=== PATIENT | male | born 1960 | race Caucasian/White ===

== ENCOUNTER 2024-03-10 15:48 | Inpatient (IN) | payer OTHER, SELFPAY ==
[2024-03-10] VITALS (25 sets, daily range): BP systolic 52–117; BP diastolic 38–100; PULSE 94–141; RESP 16–33; TEMP 36.7; O2SAT 88–96; BMI 30.9
--- NOTE | ~2024-03-10 | CT_ITS ---
History: Altered mental status and respiratory distress PROCEDURE: CT head without contrast. COMPARISON: None TECHNIQUE: Axial imaging of the head performed from the skull base to the vertex without IV contrast. Sagittal a nd coronal reformations obtained. DLP: 757 mGy-cm FINDINGS: Asymmetry of the posterior cranial fossa, possibly related to patient positioning within the gantry. The lateral ventricles are unremarkable, as is the quadrigeminal cistern and the fourth ventricle. As ymmetry within the cisterna magna is present with asymmetric visualization to the right of midline. There is no mass, mass effect or discrete midline shift. There is no abnormal extra-axial fluid collection or intracranial hemorrhage. Visualized paranasal sinuses are clear. The mastoid air cells are well aerated. No acute displaced fractures within the overlying cranium. Impression: No acute intracranial hemorrhage. Asymmetry of the posterior cranial fossa, possibly related to patient positioning within the gantry w ith asymmetric visualization of the cisterna magna to the right of midline. Short-term follow-up is r ecommended, if the patient is clinically able Reviewed, dictated and finalized at location A. OL LUNCH MANAGER Impression: No acute intracranial hemorrhage. Asymmetry of the posterior cranial fossa, possibly related to patient positioni ng within the gantry with asymmetric visualization of the cisterna magna to the right of midline. Short-term follow-up is recommended, if the patient is clini anaya able
--- NOTE | ~2024-03-10 | CT_ITS ---
EXAMINATION: CT brain wo con DATE: 03/11/2024 11:44 INDICATION: Posterior cranial fossa asymmetry. TECHNIQUE: Computed tomography (CT) of the head was performed without intravenous contrast. The mA wa s adjusted according to patient size. Iterative reconstruction technique was employed. The dose-lengt h product was 681.00 mGy-cm. COMPARISON: Head CT 03/10/2024 FINDINGS: There is an infarct in the left occipital lobe. There are old infarcts in the left parietal and occipital lobes. There is no intracranial hemorrhage or abnormal mass lesion. There is an old la cunar infarct in left thalamus. There is a small infarct in the right parietal lobe. The ventricles a re normal in size. There is mild mucosal thickening in the paranasal sinuses. There is a small left m astoid effusion. The orbits are normal. IMPRESSION: 1. Infarcts in the left occipital lobe and right parietal lobe not visible on 03/10/2024, likely acut e. 2. 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 Reviewed, dictated and finalized at location A. OR USER EXPERIENCE ARCHITECT IMPRESSION: 1. Infarcts in the left occipital lobe and right parietal lobe not visible on 1 05/11/2023, likely acute. 2. 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
--- NOTE | ~2024-03-10 | XR_ITS ---
CHEST RADIOGRAPH CLINICAL HISTORY: ett tube placement . COMPARISON: None available TECHNIQUE: Single portable view of the chest. FINDINGS Endotracheal tube identified with its tip projecting approximately 7.7 cm above the base of the gabbie a. Orogastric tube extends below the left hemidiaphragm, presumably within the stomach. Cardiomediastinal silhouette is otherwise unremarkable. Left-sided pleural effusion. The right lung is poorly visualized. IMPRESSION: Adequate radiographic placement of both the endotracheal tube and orogastric tubes, as detailed above . Reviewed, dictated and finalized at location A. MECHANIC IMPRESSION: Adequate radiographic placement of both the endotracheal tube and orogastric tu bes, as detailed above.
--- NOTE | ~2024-03-10 | CT_ITS ---
EXAMINATION: CTA chest PE protocol DATE: 03/10/2024 18:30 BONE CHAR KILN TENDER INDICATION: Altered mental status and respiratory distress TECHNIQUE: Computed tomographic angiography (CTA) of the chest was performed with 100 mL Omnipaque-35 0 intravenous contrast. The dose-length product was 853.76 mGy-cm. Maximum intensity projection 3D-re constructions of the aorta and other arteries were constructed by the technologist on a separate work station. COMPARISON: None. FINDINGS: No filling defect is identified within the main or proximal pulmonary arteries. The thoracic aorta is without dissection or aneurysmal dilatation. Panlobular emphysematous disease is present with biapical bulla and scarring. Patchy groundglass opacification and interstitial thickening is present suggesting vascular congestio n. Bilateral lower lobe consolidation for which aspiration is suspected. Retained gastric contents within the stomach of mixed attenuation. Right kidney is unremarkable. The left kidney is not visualized. The heart is of normal size, without pericardial effusion. No acute fractures are appreciated. No lytic or blastic lesions are noted. The right adrenal gland is unremarkable. The left adrenal gland is enlarged measuring 26 x 21 mm and demonstrating soft tissue attenuation. IMPRESSION: No pulmonary embolus. No aortic dissection. Likely bilateral aspiration pneumonia, as detailed above. Severe panlobular emphysematous disease. Left adrenal enlargement for which follow-up examination may be performed when the patient is clinica lly able. Reviewed, dictated and finalized at location A. CHAR KILN TENDER IMPRESSION: No pulmonary embolus. No aortic dissection. Likely bilateral aspiration pneumonia, as detailed above. Severe panlobular emphysematous disease. Left adrenal enlargement for which follow-up examination may be performed when the patient is clinically able.
--- NOTE | ~2024-03-10 | XR_ITS ---
EXAMINATION: XR chest 1V portable DATE: 03/11/2024 05:10 INDICATION: Intubated. TECHNIQUE: A single frontal view of the chest was obtained on 2 radiographs. COMPARISON: Chest single view 03/10/2024, chest CT 03/10/2024 FINDINGS: There are lucencies and architectural distortion in the lungs, consistent with emphysema. T here are airspace opacities in the mid and lower lung zones. No pleural effusion or pneumothorax. The heart size is normal. The endotracheal tube tip is 8.2 cm above the berto. The nasogastric tube tip is beyond the inferior margin of the radiograph, but at least to the stomach. IMPRESSION: 1. Stable airspace opacities in the mid and lower lung zones, consistent with pneumonia. 2. Emphysema. Reviewed, dictated and finalized at location A. COATER IMPRESSION: 1. Stable airspace opacities in the mid and lower lung zones, consistent with p neumonia. 2. Emphysema.
--- NOTE | ~2024-03-10 | CT_ITS ---
EXAMINATION: CTA neck DATE: 03/11/2024 17:44 INDICATION: Acute infarcts in the left occipital lobe and right parietal lobe. TECHNIQUE: CTA of the neck was performed with 200 mL Omnipaque 350 intravenous contrast. Automated ex posure control and iterative reconstruction technique were employed. The dose-length product was 1510 .80 mGy-cm. Maximum intensity projection and volume rendered 3D-reconstructions were created by the t echnologist on a separate workstation. COMPARISON: Chest CT 03/10/2024 FINDINGS: There is moderate emphysema. There is mild scarring at the lung apices. There are airspace opacities in the lower lobes. The endotracheal tube tip is in the trachea. Partially visualized is a nasogastri c tube. There is severe stenosis of the proximal left subclavian artery. There is moderate stenosis o f proximal left common carotid artery. There is severe stenosis of brachiocephalic trunk. The vertebr al arteries are codominant. There is plaque in the proximal internal carotid arteries. There is 31% s tenosis of the proximal right internal carotid artery relative to normal distal artery lumen diameter (NASCET criteria). There is 6% stenosis of the proximal left internal carotid artery relative to nor mal distal artery lumen diameter. There is moderate stenosis of distal left internal carotid artery. IMPRESSION: 1. Severe stenosis of proximal left subclavian artery, which likely causes subclavian steal. 2. Moderate stenosis of proximal left common carotid artery. 3. Severe stenosis of brachiocephalic trunk. 4. 31% stenosis of the proximal right internal carotid artery relative to normal distal artery lumen diameter (NASCET criteria). 5. 6% stenosis of the proximal left internal carotid artery relative to normal distal artery lumen di ameter. 6. Moderate stenosis of distal left cervical internal carotid artery. The morphology of the stenosis is suspicious for dissection with thrombosis of the false lumen. 7. Airspace opacities in the lower lobes, consistent with pneumonia. Reviewed, dictated and finalized at location A. MECHANIC IMPRESSION: 1. Severe stenosis of proximal left subclavian artery, which likely causes subc lavian steal. 2. Moderate stenosis of proximal left common carotid artery. 3. Severe stenosis of brachiocephalic trunk. 4. 31% stenosis of the proximal right internal carotid artery relative to ashlie l distal artery lumen diameter (NASCET criteria). 5. 6% stenosis of the proximal left internal carotid artery relative to normal distal artery lumen diameter. 6. Moderate stenosis of distal left cervical internal carotid artery. The morph ology of the stenosis is suspicious for dissection with thrombosis of the false lumen. 7. Airspace opacities in the lower lobes, consistent with pneumonia.
--- NOTE | 2024-03-10 16:02 | ECG_ITS ---
Test Date: 2024-03-10 16:11:12 Measurements Intervals [place] Rate: 143 P: 0 ID: 0 QRS: 79 QRSD: 114 T: 63 QT: 350 QTc: 542 Interpretive Statements SUPRAVENTRICULAR TACHYCARDIA MODERATE INTRAVENTRICULAR CONDUCTION DELAY [110+ ms QRS DURATION] ABNORMAL RHYTHM ECG No previous ECG available for comparison Electronically Signed On 03-11-2024 13:49:43 [employer]PATCH CLERK by aRymond Corey M.D.
[2024-03-10] MEDS: SODIUM CHLORIDE 0.9% IV 1,000 ML 999 ML IV CONT ×3 (16:10→20:00)
[2024-03-10] MEDS: FENTANYL 2,500MCG/NS250ML(*CRX 2,500 MCG/250 ML BAG IV CONT (16:20)
[2024-03-10 16:21] LABS: Alveolar/Arterial O2 Gradient 549.4 mmHg; Carboxyhemoglobin 3.4 % THb (0-2.0); Fractional Inspired Oxygen 100 %; HCO3 ABG 25.2 mEq/l (22.0-26.0); Methemoglobin ABG 0.4 %THb (0-1.5); Oxygen Content ABG 19.5 %vol (16.0-22.0); PO2 ABG 70.9 mmHg (80.0-100.0); PO2 FiO2 Ratio Arterial Blood 0.71 %; Reduced Hemoglobin 11.8 %THb (0-5.0); Total Hemoglobin 16.4 g/dL (12.0-18.0)
[2024-03-10 16:23] LABS: pH ABG 7.053 (7.350-7.450)
[2024-03-10 16:24] LABS: Device VENTILATOR; Oxygen Saturation ABG 85.1 % (95.0-100.0); Oxyhemoglobin 84.4 % THb (90.0-100.0); PCO2 ABG 92.7 mmHg (35.0-45.0); Site Drawn RIGHT RADIAL
[2024-03-10 16:25] LABS: Arterial Blood Gas PEEP 5 cmH2O; Arterial Blood Gas Tidal Volume 400 ml; Arterial Blood Gas Vent Mode CMV; Arterial Blood Gas Ventilator rate 16 /MIN
[2024-03-10 16:29] LABS: Basophils Absolute Auto 0.2 K/mm3 (0.0-0.1); Basophils Percent Auto 0.8 % (0.2-1.2); Eosinophils Absolute Auto 0.4 K/mm3 (0-0.3); Eosinophils Percent Auto 2.1 % (0-4.4); Hematocrit 49.4 % (42.0-52.0); Hemoglobin 16.1 g/dL (14.0-18.0); Immature Granulocyte Absolute 0.32 K/mm3 (0.00-0.031); Immature Granulocyte Percent A 1.6 % (0-0.5); Lymphocytes Absolute Auto 7.91 K/mm3 (0.9-3.2); Lymphocytes Percent Auto 39.7 % (18.3-44.2); Mean Corpuscular HGB Conc 32.6 g/dl (32-36); Mean Corpuscular Hemoglobin 30.2 pg (26-34); Mean Corpuscular Volume 92.7 fl (80-100); Mean Platelet Volume 10.2 fl (7.4-10.4); Monocytes Absolute Auto 1.2 K/mm3 (0.1-0.6); Monocytes Percent Auto 5.8 % (2.6-8.5); Platelet Count Result 386 k/mm3 (150-375); Red Blood Count 5.33 M/mm3 (4.6-6.20); Red Cell Distribution Width 14.3 % (11.5-14.5); White Blood Count 19.9 K/mm3 (4.5-10.0)
--- NOTE | 2024-03-10 16:30 | PC.NURSE ---
1550: Pt. arrives to ED. Not speaking. Breathing Labored. Pt. is diaphoretic and face is purple. RT and Dr. Morales at bedside. Crash cart and RSI kit at bedside. Dr. Morales immediately begins preparing for intubation. 1554: 30 mg etomidate administered per Dr. Morales verbal order. 1556: 100mg rocuronium administered per Dr. Morales verbal order. 0.3mg of IM epinephrine administered in L. deltoid per Dr. Morales verbal order. 1558: Pt. intubated with 7.5 ETT, 23 at the lip. Gold color change, bilateral breath sounds auscultated, equal chest rise and fall. 1620: Pt. taken to CT with RT, jermaine RN and Juan DELGADO at bedside. Pt. is on a monitor. No acute distress. Fentanyl infusion initiated at 50 mcg/hr by 2x RN (jermaine RN and SANDY Martinez) per Dr. Morales verbal order.
--- NOTE | 2024-03-10 16:33 | ED_ITS ---
HPI - SOB/Dyspnea General Chief Complaint: Shortness of Breath/Dyspnea <Tiburcio Theodore MD - Last Filed: 03/13/24 10:36> Stated Complaint: resp distress <Tiburcio Theodore MD - Last Filed: 03/13/24 10:36> Time Seen by Provider: 03/10/24 16:08 <Tiburcio Theodore MD - Last Filed: 03/13/24 10:36> History of Present Illness HPI Narrative: 63-year-old male presents in acute respiratory distress. EMS called and told us that there had a agitated and combative patient has in respiratory distress and belly breathing found at home. Collateral formation is limited secondary to patient's mental status. He presents in severe respiratory distress. Patient had an IR was tablets secondary to lacking IV access and was given Solu-Medrol in route and when patient became agitated combative and start finding the EMS staff he was provided 5 mg of IM Versed. Patient is agitated and combative upon arrival, somnolent with belly breathing and head bobbing. He was brought back in to room 10 as a medical resuscitation with RT assisting for emergent intubation. <Tiburcio Theodore MD - Last Filed: 03/13/24 10:36> Related Data Home Medications: Home Medications ?Medication ?Instructions ?Recorded ?Confirmed ?Last Taken ?Type albuterol sulfate 90 mcg/actuation 1 inh inhalation Q4-6H PRN 03/09/20 03/11/24 Unknown History breath activated powder shortness of breath or wheezing inhaler,sensor (Proair Digihaler) cyclobenzaprine 10 mg tablet 10 mg PO TID 03/09/20 03/11/24 Unknown History gabapentin 300 mg capsule 300 mg PO TID 03/09/20 03/11/24 Unknown History lisinopril 40 mg tablet 40 mg PO DAILY 03/09/20 03/11/24 Unknown History trazodone 50 mg tablet 50 mg PO HS PRN sleep 03/09/20 03/11/24 Unknown History diclofenac sodium 75 mg 75 mg PO Q12H 03/11/24 03/11/24 Unknown History tablet,delayed release famotidine 40 mg tablet 40 mg PO DAILY 03/11/24 03/11/24 Unknown History metoprolol tartrate 25 mg tablet 25 mg PO Q12H 03/11/24 03/11/24 Unknown History <Tiburcio Theodore MD - Last Filed: 03/13/24 10:36> Allergies/Adverse Reactions: Allergies Allergy/AdvReac Type Severity Reaction Status Date / Time No Known Allergies Allergy Verified 01/05/21 15:07 <Tiburcio Theodore MD - Last Filed: 03/13/24 10:36> Review of Systems 2 Review of Systems: As reviewed above in HPI <Tiburcio Theodore MD - Last Filed: 03/13/24 10:36> FORMERLY [facility], [facility] Past Medical History Medical History: Medical History (Updated 03/11/24 @ 17:31 by Miguel Mcdonough MD) Medical history unknown Tobacco dependence <Tiburcio Theodore MD - Last Filed: 03/13/24 10:36> Surgical History Surgical History: Surgical History (Updated 03/11/24 @ 14:46 by Randi Rudolph PA-C) Surgical history unknown <Tiburcio Theodore MD - Last Filed: 03/13/24 10:36> Family History Family History: Family History (Updated 03/11/24 @ 14:46 by Randi Rudolph PA-C) Other Family history unknown <Tiburcio Theodore MD - Last Filed: 03/13/24 10:36> Social History Social History: Social History Social History: Surrogate medical decision maker: Evelyne Menchaca ([phone]). Code status: Full code. Smoking packs per day: 2 Smoking cigarettes per day: 40.0 Smoking status: Heavy tobacco smoker Tobacco type: cigarettes Second hand tobacco smoke exposure: No Alcohol intake: current Substance use: current Substance use type: marijuana Spiritual care concerns: No <Tiburcio Theodore MD - Last Filed: 03/13/24 10:36> Exam 2 Narrative: GENERAL: Respiratory distress, agitated, not alert or oriented, combative HEAD: [Normocephalic, atraumatic.] EYES: [PERRLA and EOMI.] ENT: Nares clear, no rhinorrhea or epistaxis. Mucous membranes moist. NECK: Supple. Bilateral JVD neck pains and plethoric face CHEST: Diminished to auscultation, prolonged expiratory phase and scant wheezing, severe respiratory distress, belly breathing, head bobbing HEART: Tachycardic rate with regular. No murmur heard. [Normal peripheral pulses.] ABDOMEN: [Soft, nondistended], [nontender], [No rigidity or guarding] EXTREMITIES: Normal range of motion. [No edema.] SKIN: Diaphoretic NEURO: No obvious focal deficits with patient is altered and combative, difficult to fully assess PSYCH: Difficult to assess secondary to altered mental status <Tiburcio Theodore MD - Last Filed: 03/13/24 10:36> Course Course Emergency Course: Signed out to oncoming ED physician pending CT angiography for an admission to the ICU <Tiburcio Theodore MD - Last Filed: 03/13/24 10:36> Signed out to oncoming ED physician pending CT angiography for an admission to the ICU Received sign-out on this patient pending CTA results. CT results show bilateral aspiration pneumonia without evidence of pulmonary embolus. Flagyl has been added. CT brain without acute abnormalities. Patient with increasingly soft pressures, peripheral levo started and I placed a central line. Please see procedure note below for further detail. His repeat ABG is actually worse, several vent changes were made and another breathing treatment ordered. Spoke with the ICU who has accepted him for admission. Recommends Solu-Cortef 50 mix q.6. Spoke with the hospitalist who has accepted as well. <Ashley Panda MD - Last Filed: 03/10/24 21:28> Vital Signs Vital signs: Vital Signs Temperature 36.7 C 03/10/24 16:00 Pulse Rate 133 H 03/10/24 16:00 Blood Pressure 114/79 03/10/24 16:00 Pulse Oximetry 91 03/10/24 16:00 Oxygen Delivery Bag Valve Mask 03/10/24 16:00 Temperature 36.8 C 03/12/24 02:03 Pulse Rate 103 H 03/12/24 03:45 Respiratory Rate 27 H 03/12/24 03:45 Blood Pressure 100/83 03/12/24 03:45 Pulse Oximetry 95 12/26/24 03:31 Oxygen Delivery Mechanical Ventilation 03/12/24 02:48 Fraction of Inspired Oxygen 50 03/12/24 02:48 <Tiburcio Theodore MD - Last Filed: 03/13/24 10:36> Vital Signs Temperature 36.7 C 03/10/24 16:00 Pulse Rate 133 H 03/10/24 16:00 Blood Pressure 114/79 03/10/24 16:00 Pulse Oximetry 91 03/10/24 16:00 Oxygen Delivery Bag Valve Mask 03/10/24 16:00 Temperature 36.8 C 03/12/24 02:03 Pulse Rate 103 H 03/12/24 03:45 Respiratory Rate 27 H 03/12/24 03:45 Blood Pressure 100/83 03/12/24 03:45 Pulse Oximetry 95 03/12/24 03:31 Oxygen Delivery Mechanical Ventilation 03/12/24 02:48 Fraction of Inspired Oxygen 50 03/12/24 02:48 <Ashley Panda MD - Last Filed: 03/10/24 21:28> Procedures Central Line Placement Right Femoral: Central Line Date: 03/10/24 <Ashley Panda MD - Last Filed: 03/10/24 21:28> Central Line Time: 19:50 <Ashley Panda MD - Last Filed: 03/10/24 21:28> Performed Emergently - Given emergent patient condition, temporal constraints may have precluded informed consent.: Yes <Ashley Panda MD - Last Filed: 03/10/24 21:28> Patient Placed on Monitor/Pulse Ox: Yes <Ashley Panda MD - Last Filed: 03/10/24 21:28> Max. Sterile Barrier Technique: Caps, large sterile sheet and hand hygiene <Ashley Panda MD - Last Filed: 03/10/24 21:28> Central Line Prep: 2% chlorhexidine scrub and sterile drapes applied <Ashley Panda MD - Last Filed: 03/10/24 21:28> Technique: seldinger <Ashley Panda MD - Last Filed: 03/10/24 21:28> Ultrasound Used for Placement: Yes <Ashley Panda MD - Last Filed: 03/10/24 21:28> Central Line Lumen Inserted: triple <Ashley Panda MD - Last Filed: 03/10/24 21:28> Post Procedure: sutured in place, good blood return, all ports aspirated, flushed, capped and sterile dressing applied <Ashley Panda MD - Last Filed: 03/10/24 21:28> Patient Tolerated Procedure: well <Ashley Panda MD - Last Filed: 03/10/24 21:28> Complications: none <Ashley Panda MD - Last Filed: 03/10/24 21:28> Intubation Intubation #1: Intubation Date: 03/10/24 <Tiburcio Theodore MD - Last Filed: 03/13/24 10:36> Intubation Time: 16:05 <Tiburcio Theodore MD - Last Filed: 03/13/24 10:36> Time out performed: Yes <Tiburcio Theodore MD - Last Filed: 03/13/24 10:36> sedative: Etomidate <Tiburcio Theodore MD - Last Filed: 03/13/24 10:36> Mg Given: 30 <Tiburcio Theodore MD - Last Filed: 03/13/24 10:36> paralytic: Rocuronium <Tiburcio Theodore MD - Last Filed: 03/13/24 10:36> Mg Given: 100 <Tiburcio Theodore MD - Last Filed: 03/13/24 10:36> Laryngoscope: fiber optic video scope <Tiburcio Theodore MD - Last Filed: 03/13/24 10:36> Tube Size (cm): 7.5 <Tiburcio Theodore MD - Last Filed: 03/13/24 10:36> Method of Intubation: orotracheal <Tiburcio Theodore MD - Last Filed: 03/13/24 10:36> Number of Attempts: 1 <Tiburcio Theodore MD - Last Filed: 03/13/24 10:36> Tube Secured Depth (cm): 23 <Tiburcio Theodore MD - Last Filed: 03/13/24 10:36> Tube Secured Location: lips <Tiburcio Theodore MD - Last Filed: 03/13/24 10:36> Tube Placement Confirmation: visualized tube passing through cords, equal breath sounds bilaterally, no breath sounds over epigastrium and confirmation by capnometry < Tiburcio Theodore MD - Last Filed: 03/13/24 10:36> Patient Tolerated Procedure: well and no complications <Tiburcio Theodore MD - Last Filed: 03/13/24 10:36> Intubation Complications: none <Tiburcio Theodore MD - Last Filed: 03/13/24 10:36> MDM - SOB/Dyspnea MDM Narrative Medical decision making narrative: 63-year-old male with a history of COPD presenting in severe respiratory distress requiring emergent intubation. Patient was found by EMS in respiratory distress, altered mentation, agitation combative, he was hypoxic, barely breathing, belly breathing with head bobbing. He was getting oxygen support via EMS and he became agitated and combative, given 5 mg IM on Versed. Patient presents in respiratory distress with plethora and bilateral JVD, barely audible breath sounds with prolonged expiratory phase. Presumption of severe COPD exacerbation. Patient requires emergent endotracheal intubation secondary to his respiratory status and altered mentation. RT called to bedside for assist, procedures successful without any complications. IV was established, fluid boluses given, chest x-rays to confirm placement and rule out pneumothoraces. Patient was given empiric treatment with in nebulized ipratropium albuterol, already received Solu-Medrol via EMS, given vancomycin cefepime for antibiotic coverage, started on a fentanyl drip. ABG, CBC, CMP, COVID swabs obtained. CT of the head CT angiography of the chest obtained secondary to his distended neck veins and plethora with respiratory distress concern for potential cardiac pathology or vascular pathology in addition to chief leading diagnosis being COPD exacerbation. ABG return with severe respiratory acidosis with a pH of 7.05, pCO2 of 92.7, bicarb of 25 indicating severe acute COPD with CO2 retention without appropriate compensation. Vent settings managed to allow for gas exchange while allowing permissive hypercapnia in the setting of severe COPD. I independently reviewed the CTA and do not see any large PE or central vascular pathology, however there is severe bilateral emphesehematous lungs and large ammount of high attenuation dependent fluid in both lungs likely PNA versus aspiration versus aspiration pneumonitis. Patient already on empiric antibiotics broad spectrum and receiving breathing treatments in line through the ETT. Low dose fentanyl drip for sedation and titration orders placed. Pending radiology read of CTA PE study and CT brain for admission to the hospital and ICU. <Tiburcio Theodore MD - Last Filed: 03/13/24 10:36> Differential Diagnosis Differential diagnosis: Likely acute exacerbation of chronic obstructive airways disease, congestive heart failure, community acquired pneumonia, asthma with exacerbation, pulmonary embolism and other <Tiburcio Theodore MD - Last Filed: 03/13/24 10:36> Medical Records Attestation: I reviewed the patient's medical records. <Tiburcio Theodore MD - Last Filed: 03/13/24 10:36> Lab Data Attestation: I reviewed the patient's lab results. <Tiburcio Theodore MD - Last Filed: 03/13/24 10:36> Result diagrams: 03/11/24 04:36 03/11/24 04:36 <Tiburcio Theodore MD - Last Filed: 03/13/24 10:36> Labs: Lab Results 03/10/24 03/10/24 03/10/24 Range/Units 16:20 16:21 16:36 WBC 19.9 H (4.5-10.0) K/mm3 RBC 5.33 (4.6-6.20) M/mm3 Hgb 16.1 (14.0-18.0) g/dL Hct 49.4 (42.0-52.0) % MCV 92.7 (80-100) fl MCH 30.2 (26-34) pg MCHC 32.6 (32-36) g/dl RDW 14.3 (11.5-14.5) % Plt Count 386 H (150-375) k/mm3 MPV 10.2 (7.4-10.4) fl Immature Gran % (Auto) 1.6 H (0-0.5) % Neut % (Auto) 50.0 (45.5-73.1) % Lymph % (Auto) 39.7 (18.3-44.2) % Alfalfa % (Auto) 5.8 (2.6-8.5) % Eos % (Auto) 2.1 (0-4.4) % Baso % (Auto) 0.8 (0.2-1.2) % Lymph # (Auto) 7.91 H (0.9-3.2) K/mm3 Alfalfa # (Auto) 1.2 H (0.1-0.6) K/mm3 Eos # (Auto) 0.4 H (0-0.3) K/mm3 Baso # (Auto) 0.2 H (0.0-0.1) K/mm3 Abs Immat Gran (auto) 0.32 H (0.00-0.031) K/mm3 Absolute Neuts (auto) 10.0 H (1.3-6.7) K/mm3 Absolute Nucleated RBC 0.000 (0.0-0.012) K/mm3 Nucleated RBC % 0.0 (0.0-0.2) % Atypical Lymphocytes Present Platelet Estimate Increased (Adequate) Large Platelets Present Giant Platelets Present Anisocytosis 1+ Schistocytes None seen Methemoglobin 0.4 (0-1.5) %THb Minute Volume Not Reportable Vent Mode Cmv Tidal Volume 400 ml PEEP 5 cmH2O Peak Inspir Pressure Not Reportable Pressure Support Not Reportable Sodium 139 (137-145) mmol/L Potassium 4.5 (3.4-5.0) mmol/L Chloride 105 (98-107) mmol/L Carbon Dioxide 22 (22-30) mmol/L Anion Gap 12 (4-12) mmol/L BUN 10 (9-20) mg/dL Creatinine 1.10 1.20 (0.7-1.3) mg/dL Estim Creat Clear Calc 78 Not Reportable ml/min Estimated GFR > 60 > 60 (59 - ) Glucose 219 H (65-110) mg/dL POC Capillary Glucose (65-105) mg/dl Hemoglobin A1c 5.6 (<5.7) % Lactic Acid (0.7-2.0) mmol/L Calcium 8.9 (8.4-10.2) mg/dL Total Bilirubin 0.5 (0.2-1.3) mg/dL AST 30 (17-59) U/L ALT 28 (6-50) U/L Alkaline Phosphatase 94 (38-126) U/L Troponin I < 0.012 (0.000-0.034) ng/mL Total Protein 7.0 (6.3-8.2) g/dL Albumin 4.3 (3.5-5.1) g/dL Nasal MRSA (PCR) (NOT DETECTE) Influenza A (RT-PCR) Negative (Negative) Influenza B (RT-PCR) Negative (Negative) Ur L.pneumophila Ag RSV (RT-PCR) Negative (Negative) SARS-CoV-2 RNA (RT-PCR) Negative (Negative) TB Test (QFT) Gold Plus TB Test (QFT) Nil TB Test Mitogen - Nil TB Test Ag - Nil 1 TB Test Ag - Nil 2 03/10/24 03/10/24 03/10/24 Range/Units 16:55 17:07 18:01 WBC (4.5-10.0) K/mm3 RBC (4.6-6.20) M/mm3 Hgb (14.0-18.0) g/dL Hct (42.0-52.0) % MCV (80-100) fl MCH (26-34) pg MCHC (32-36) g/dl RDW (11.5-14.5) % Plt Count (150-375) k/mm3 MPV (7.4-10.4) fl Immature Gran % (Auto) (0-0.5) % Neut % (Auto) (45.5-73.1) % Lymph % (Auto) (18.3-44.2) % Alfalfa % (Auto) (2.6-8.5) % Eos % (Auto) (0-4.4) % Baso % (Auto) (0.2-1.2) % Lymph # (Auto) (0.9-3.2) K/mm3 Alfalfa # (Auto) (0.1-0.6) K/mm3 Eos # (Auto) (0-0.3) K/mm3 Baso # (Auto) (0.0-0.1) K/mm3 Abs Immat Gran (auto) (0.00-0.031) K/mm3 Absolute Neuts (auto) (1.3-6.7) K/mm3 Absolute Nucleated RBC (0.0-0.012) K/mm3 Nucleated RBC % (0.0-0.2) % Atypical Lymphocytes Platelet Estimate (Adequate) Large Platelets Giant Platelets Anisocytosis Schistocytes Methemoglobin (0-1.5) %THb Minute Volume Vent Mode Tidal Volume ml PEEP cmH2O Peak Inspir Pressure Pressure Support Sodium (137-145) mmol/L Potassium (3.4-5.0) mmol/L Chloride (98-107) mmol/L Carbon Dioxide (22-30) mmol/L Anion Gap (4-12) mmol/L BUN (9-20) mg/dL Creatinine (0.7-1.3) mg/dL Estim Creat Clear Calc ml/min Estimated GFR (59 - ) Glucose (65-110) mg/dL POC Capillary Glucose (65-105) mg/dl Hemoglobin A1c (<5.7) % Lactic Acid 0.7 (0.7-2.0) mmol/L Calcium (8.4-10.2) mg/dL Total Bilirubin (0.2-1.3) mg/dL AST (17-59) U/L ALT (6-50) U/L Alkaline Phosphatase (38-126) U/L Troponin I (0.000-0.034) ng/mL Total Protein (6.3-8.2) g/dL Albumin (3.5-5.1) g/dL Nasal MRSA (PCR) Not detected (NOT DETECTE) Influenza A (RT-PCR) (Negative) Influenza B (RT-PCR) (Negative) Ur L.pneumophila Ag Pending RSV (RT-PCR) (Negative) SARS-CoV-2 RNA (RT-PCR) (Negative) TB Test (QFT) Gold Plus TB Test (QFT) Nil TB Test Mitogen - Nil TB Test Ag - Nil 1 TB Test Ag - Nil 2 03/10/24 03/10/24 03/10/24 Range/Units 18:43 18:47 19:08 WBC (4.5-10.0) K/mm3 RBC (4.6-6.20) M/mm3 Hgb (14.0-18.0) g/dL Hct (42.0-52.0) % MCV (80-100) fl MCH (26-34) pg MCHC (32-36) g/dl RDW (11.5-14.5) % Plt Count (150-375) k/mm3 MPV (7.4-10.4) fl Immature Gran % (Auto) (0-0.5) % Neut % (Auto) (45.5-73.1) % Lymph % (Auto) (18.3-44.2) % Alfalfa % (Auto) (2.6-8.5) % Eos % (Auto) (0-4.4) % Baso % (Auto) (0.2-1.2) % Lymph # (Auto) (0.9-3.2) K/mm3 Alfalfa # (Auto) (0.1-0.6) K/mm3 Eos # (Auto) (0-0.3) K/mm3 Baso # (Auto) (0.0-0.1) K/mm3 Abs Immat Gran (auto) (0.00-0.031) K/mm3 Absolute Neuts (auto) (1.3-6.7) K/mm3 Absolute Nucleated RBC (0.0-0.012) K/mm3 Nucleated RBC % (0.0-0.2) % Atypical Lymphocytes Platelet Estimate (Adequate) Large Platelets Giant Platelets Anisocytosis Schistocytes Methemoglobin 0.4 (0-1.5) %THb Minute Volume Not Reportable Vent Mode Cmv Tidal Volume 400 ml PEEP 5 cmH2O Peak Inspir Pressure Not Reportable Pressure Support Not Reportable Sodium (137-145) mmol/L Potassium (3.4-5.0) mmol/L Chloride (98-107) mmol/L Carbon Dioxide (22-30) mmol/L Anion Gap (4-12) mmol/L BUN (9-20) mg/dL Creatinine (0.7-1.3) mg/dL Estim Creat Clear Calc ml/min Estimated GFR (59 - ) Glucose (65-110) mg/dL POC Capillary Glucose 226 H (65-105) mg/dl Hemoglobin A1c (<5.7) % Lactic Acid (0.7-2.0) mmol/L Calcium (8.4-10.2) mg/dL Total Bilirubin (0.2-1.3) mg/dL AST (17-59) U/L ALT (6-50) U/L Alkaline Phosphatase (38-126) U/L Troponin I (0.000-0.034) ng/mL Total Protein (6.3-8.2) g/dL Albumin (3.5-5.1) g/dL Nasal MRSA (PCR) (NOT DETECTE) Influenza A (RT-PCR) (Negative) Influenza B (RT-PCR) (Negative) Ur L.pneumophila Ag RSV (RT-PCR) (Negative) SARS-CoV-2 RNA (RT-PCR) (Negative) TB Test (QFT) Gold Plus Pending TB Test (QFT) Nil Pending TB Test Mitogen - Nil Pending TB Test Ag - Nil 1 Pending TB Test Ag - Nil 2 Pending <Tiburcio Theodore MD - Last Filed: 03/13/24 10:36> Lab Results 03/10/24 03/10/24 03/10/24 Range/Units 16:20 16:21 16:36 WBC 19.9 H (4.5-10.0) K/mm3 RBC 5.33 (4.6-6.20) M/mm3 Hgb 16.1 (14.0-18.0) g/dL Hct 49.4 (42.0-52.0) % MCV 92.7 (80-100) fl MCH 30.2 (26-34) pg MCHC 32.6 (32-36) g/dl RDW 14.3 (11.5-14.5) % Plt Count 386 H (150-375) k/mm3 MPV 10.2 (7.4-10.4) fl Immature Gran % (Auto) 1.6 H (0-0.5) % Neut % (Auto) 50.0 (45.5-73.1) % Lymph % (Auto) 39.7 (18.3-44.2) % Alfalfa % (Auto) 5.8 (2.6-8.5) % Eos % (Auto) 2.1 (0-4.4) % Baso % (Auto) 0.8 (0.2-1.2) % Lymph # (Auto) 7.91 H (0.9-3.2) K/mm3 Alfalfa # (Auto) 1.2 H (0.1-0.6) K/mm3 Eos # (Auto) 0.4 H (0-0.3) K/mm3 Baso # (Auto) 0.2 H (0.0-0.1) K/mm3 Abs Immat Gran (auto) 0.32 H (0.00-0.031) K/mm3 Absolute Neuts (auto) 10.0 H (1.3-6.7) K/mm3 Absolute Nucleated RBC 0.000 (0.0-0.012) K/mm3 Nucleated RBC % 0.0 (0.0-0.2) % Atypical Lymphocytes Present Platelet Estimate Increased (Adequate) Large Platelets Present Giant Platelets Present Anisocytosis 1+ Schistocytes None seen Methemoglobin 0.4 (0-1.5) %THb Minute Volume Not Reportable Vent Mode Cmv Tidal Volume 400 ml PEEP 5 cmH2O Peak Inspir Pressure Not Reportable Pressure Support Not Reportable Sodium 139 (137-145) mmol/L Potassium 4.5 (3.4-5.0) mmol/L Chloride 105 (98-107) mmol/L Carbon Dioxide 22 (22-30) mmol/L Anion Gap 12 (4-12) mmol/L BUN 10 (9-20) mg/dL Creatinine 1.10 1.20 (0.7-1.3) mg/dL Estim Creat Clear Calc 78 Not Reportable ml/min Estimated GFR > 60 > 60 (59 - ) Glucose 219 H (65-110) mg/dL POC Capillary Glucose (65-105) mg/dl Hemoglobin A1c 5.6 (<5.7) % Lactic Acid (0.7-2.0) mmol/L Calcium 8.9 (8.4-10.2) mg/dL Total Bilirubin 0.5 (0.2-1.3) mg/dL AST 30 (17-59) U/L ALT 28 (6-50) U/L Alkaline Phosphatase 94 (38-126) U/L Troponin I < 0.012 (0.000-0.034) ng/mL Total Protein 7.0 (6.3-8.2) g/dL Albumin 4.3 (3.5-5.1) g/dL Nasal MRSA (PCR) (NOT DETECTE) Influenza A (RT-PCR) Negative (Negative) Influenza B (RT-PCR) Negative (Negative) Ur L.pneumophila Ag RSV (RT-PCR) Negative (Negative) SARS-CoV-2 RNA (RT-PCR) Negative (Negative) TB Test (QFT) Gold Plus TB Test (QFT) Nil TB Test Mitogen - Nil TB Test Ag - Nil 1 TB Test Ag - Nil 2 03/10/24 03/10/24 03/10/24 Range/Units 16:55 17:07 18:01 WBC (4.5-10.0) K/mm3 RBC (4.6-6.20) M/mm3 Hgb (14.0-18.0) g/dL Hct (42.0-52.0) % MCV (80-100) fl MCH (26-34) pg MCHC (32-36) g/dl RDW (11.5-14.5) % Plt Count (150-375) k/mm3 MPV (7.4-10.4) fl Immature Gran % (Auto) (0-0.5) % Neut % (Auto) (45.5-73.1) % Lymph % (Auto) (18.3-44.2) % Alfalfa % (Auto) (2.6-8.5) % Eos % (Auto) (0-4.4) % Baso % (Auto) (0.2-1.2) % Lymph # (Auto) (0.9-3.2) K/mm3 Alfalfa # (Auto) (0.1-0.6) K/mm3 Eos # (Auto) (0-0.3) K/mm3 Baso # (Auto) (0.0-0.1) K/mm3 Abs Immat Gran (auto) (0.00-0.031) K/mm3 Absolute Neuts (auto) (1.3-6.7) K/mm3 Absolute Nucleated RBC (0.0-0.012) K/mm3 Nucleated RBC % (0.0-0.2) % Atypical Lymphocytes Platelet Estimate (Adequate) Large Platelets Giant Platelets Anisocytosis Schistocytes Methemoglobin (0-1.5) %THb Minute Volume Vent Mode Tidal Volume ml PEEP cmH2O Peak Inspir Pressure Pressure Support Sodium (137-145) mmol/L Potassium (3.4-5.0) mmol/L Chloride (98-107) mmol/L Carbon Dioxide (22-30) mmol/L Anion Gap (4-12) mmol/L BUN (9-20) mg/dL Creatinine (0.7-1.3) mg/dL Estim Creat Clear Calc ml/min Estimated GFR (59 - ) Glucose (65-110) mg/dL POC Capillary Glucose (65-105) mg/dl Hemoglobin A1c (<5.7) % Lactic Acid 0.7 (0.7-2.0) mmol/L Calcium (8.4-10.2) mg/dL Total Bilirubin (0.2-1.3) mg/dL AST (17-59) U/L ALT (6-50) U/L Alkaline Phosphatase (38-126) U/L Troponin I (0.000-0.034) ng/mL Total Protein (6.3-8.2) g/dL Albumin (3.5-5.1) g/dL Nasal MRSA (PCR) Not detected (NOT DETECTE) Influenza A (RT-PCR) (Negative) Influenza B (RT-PCR) (Negative) Ur L.pneumophila Ag Pending RSV (RT-PCR) (Negative) SARS-CoV-2 RNA (RT-PCR) (Negative) TB Test (QFT) Gold Plus TB Test (QFT) Nil TB Test Mitogen - Nil TB Test Ag - Nil 1 TB Test Ag - Nil 2 03/10/24 03/10/24 03/10/24 Range/Units 18:43 18:47 19:08 WBC (4.5-10.0) K/mm3 RBC (4.6-6.20) M/mm3 Hgb (14.0-18.0) g/dL Hct (42.0-52.0) % MCV (80-100) fl MCH (26-34) pg MCHC (32-36) g/dl RDW (11.5-14.5) % Plt Count (150-375) k/mm3 MPV (7.4-10.4) fl Immature Gran % (Auto) (0-0.5) % Neut % (Auto) (45.5-73.1) % Lymph % (Auto) (18.3-44.2) % Alfalfa % (Auto) (2.6-8.5) % Eos % (Auto) (0-4.4) % Baso % (Auto) (0.2-1.2) % Lymph # (Auto) (0.9-3.2) K/mm3 Alfalfa # (Auto) (0.1-0.6) K/mm3 Eos # (Auto) (0-0.3) K/mm3 Baso # (Auto) (0.0-0.1) K/mm3 Abs Immat Gran (auto) (0.00-0.031) K/mm3 Absolute Neuts (auto) (1.3-6.7) K/mm3 Absolute Nucleated RBC (0.0-0.012) K/mm3 Nucleated RBC % (0.0-0.2) % Atypical Lymphocytes Platelet Estimate (Adequate) Large Platelets Giant Platelets Anisocytosis Schistocytes Methemoglobin 0.4 (0-1.5) %THb Minute Volume Not Reportable Vent Mode Cmv Tidal Volume 400 ml PEEP 5 cmH2O Peak Inspir Pressure Not Reportable Pressure Support Not Reportable Sodium (137-145) mmol/L Potassium (3.4-5.0) mmol/L Chloride (98-107) mmol/L Carbon Dioxide (22-30) mmol/L Anion Gap (4-12) mmol/L BUN (9-20) mg/dL Creatinine (0.7-1.3) mg/dL Estim Creat Clear Calc ml/min Estimated GFR (59 - ) Glucose (65-110) mg/dL POC Capillary Glucose 226 H (65-105) mg/dl Hemoglobin A1c (<5.7) % Lactic Acid (0.7-2.0) mmol/L Calcium (8.4-10.2) mg/dL Total Bilirubin (0.2-1.3) mg/dL AST (17-59) U/L ALT (6-50) U/L Alkaline Phosphatase (38-126) U/L Troponin I (0.000-0.034) ng/mL Total Protein (6.3-8.2) g/dL Albumin (3.5-5.1) g/dL Nasal MRSA (PCR) (NOT DETECTE) Influenza A (RT-PCR) (Negative) Influenza B (RT-PCR) (Negative) Ur L.pneumophila Ag RSV (RT-PCR) (Negative) SARS-CoV-2 RNA (RT-PCR) (Negative) TB Test (QFT) Gold Plus Pending TB Test (QFT) Nil Pending TB Test Mitogen - Nil Pending TB Test Ag - Nil 1 Pending TB Test Ag - Nil 2 Pending <Ashley Panda MD - Last Filed: 03/10/24 21:28> ABG Data ABG results: 03/10/24 03/10/24 16:20 19:08 Puncture Site Right radial Right radial ABG pH 7.053 L* 6.899 L* ABG pCO2 92.7 H* 140.6 H* ABG pO2 70.9 L 76.2 L ABG PO2/FiO2 Ratio 0.71 0.76 ABG HCO3 25.2 26.9 H ABG O2 Saturation 85.1 L* 81.3 L* ABG O2 Content 19.5 20.2 ABG Base Excess -8.0 -10.6 A-a Gradient 549.4 496.2 Oxyhemoglobin 84.4 L* 85.3 L* Carboxyhemoglobin 3.4 H 2.9 H Reduced Hemoglobin 11.8 H 11.4 H Total Hemoglobin 16.4 16.8 O2 Delivery Device Ventilator Ventilator O2 Liters/Min Not Reportable Not Reportable Vent Rate 16 16 FiO2 100 100 <Tiburcio Theodore MD - Last Filed: 03/13/24 10:36> 03/10/24 03/10/24 16:20 19:08 Puncture Site Right radial Right radial ABG pH 7.053 L* 6.899 L* ABG pCO2 92.7 H* 140.6 H* ABG pO2 70.9 L 76.2 L ABG PO2/FiO2 Ratio 0.71 0.76 ABG HCO3 25.2 26.9 H ABG O2 Saturation 85.1 L* 81.3 L* ABG O2 Content 19.5 20.2 ABG Base Excess -8.0 -10.6 A-a Gradient 549.4 496.2 Oxyhemoglobin 84.4 L* 85.3 L* Carboxyhemoglobin 3.4 H 2.9 H Reduced Hemoglobin 11.8 H 11.4 H Total Hemoglobin 16.4 16.8 O2 Delivery Device Ventilator Ventilator O2 Liters/Min Not Reportable Not Reportable Vent Rate 16 16 FiO2 100 100 <Ashley Panda MD - Last Filed: 03/10/24 21:28> Attestation: I personally reviewed and interpreted this ABG as follows: <Tiburcio Theodore MD - Last Filed: 03/13/24 10:36> Interpretation: Severe respiratory acidosis with pH 7.0, pCO2 92, bicarb 25 indicative of incomplete compensation with acute decompensation CO2 retention. <Tiburcio Theodore MD - Last Filed: 03/13/24 10:36> Imaging Data Attestation: I personally reviewed and interpreted this imaging study as follows: < Tiburcio Theodore MD - Last Filed: 03/13/24 10:36> My impression: Appropriate endotracheal tube placement about 4 cm above the berto, diffuse haziness in bilateral lungs, potential cavitary looking lesion left-sided awaiting CT scan results Impressions Chest X-Ray 03/10/24 16:18 IMPRESSION: Adequate radiographic placement of both the endotracheal tube and orogastric tubes, as detailed above. <Tiburcio Theodore MD - Last Filed: 03/13/24 10:36> Critical Care Time Critical Care Time Critical Care Time: Yes <Tiburcio Theodore MD - Last Filed: 03/13/24 10:36> Total Critical Care Time: 75 <Tiburcio Theodore MD - Last Filed: 03/13/24 10:36> 75 <Ashley Panda MD - Last Filed: 03/10/24 21:28> Discharge Plan Discharge Clinical Impression: Acute respiratory distress, Acute hypoxemic respiratory failure, Acute hypercapnic respiratory failure, Acute alteration in mental status, Aspiration pneumonia of both lungs, Septic shock <Tiburcio Theodore MD - Last Filed: 03/13/24 10:36> Patient Disposition: Still a Patient <Tiburcio Theodore MD - Last Filed: 03/13/24 10:36> Condition: Serious <Tiburcio Theodore MD - Last Filed: 03/13/24 10:36>
[2024-03-10 16:40] LABS: Estimated Glomerular Filt Rate > 60
[2024-03-10 16:53] LABS: Alanine Aminotransferase 28 U/L (6-50); Albumin Level 4.3 g/dL (3.5-5.1); Alkaline Phosphatase 94 U/L (38-126); Anion Gap 12 mmol/L (4-12); Aspartate Amino Transferase 30 U/L (17-59); Bilirubin,Total 0.5 mg/dL (0.2-1.3); Blood Urea Nitrogen 10 mg/dL (9-20); Calcium 8.9 mg/dL (8.4-10.2); Carbon Dioxide 22 mmol/L (22-30); Chloride 105 mmol/L (98-107); Estimated CRCL calculation 78 ml/min; Estimated Glomerular Filt Rate > 60; Glucose 219 mg/dL (65-110); Potassium 4.5 mmol/L (3.4-5.0); Sodium 139 mmol/L (137-145)
[2024-03-10 16:57] LABS: Anisocytosis 1+; Atypical Lymphocytes Present; Giant Platelets Present; Large Platelets Present; Platelet Estimate Increased (Adequate); Schistocytes None Seen
[2024-03-10 17:05] LABS: Influenza A QL RT-PCR Negative (Negative); Influenza B QL RT-PCR Negative (Negative); RSV RNA, RT-PCR Negative (Negative); SARS-CoV-2 RNA PCR Negative (Negative)
[2024-03-10] MEDS: CEFEPIME 2 GM/NS 50 ML 2 GM/50 ML BAG IVPB (17:05)
[2024-03-10] MEDS: ALBUTEROL SULFATE NEB 2.5 MG/3 ML INH 10 MG INHALATION ×2 (17:07→20:37)
[2024-03-10] MEDS: IPRATROPIUM BR 0.02% INH SOLN 0.5 MG/2.5 ML VIAL 1 MG INHALATION (17:07)
[2024-03-10 17:10] LABS: Lactic Acid Reflex 0.7 mmol/L (0.7-2.0)
[2024-03-10] MEDS: VANCOMYCIN 1,250 MG/NS 250 ML 1,250 MG/250 ML BAG 166.67 MG IVPB ×2 (18:09→19:45)
[2024-03-10 18:25] LABS: MRSA (PCR) NOT DETECTED (NOT DETECTE)
--- NOTE | 2024-03-10 18:44 | ECG_ITS ---
Test Date: 2024-03-10 18:49:27 Measurements Intervals [place] Rate: 125 P: 38 AR: 132 QRS: 64 QRSD: 113 T: 110 QT: 317 QTc: 458 Interpretive Statements SINUS TACHYCARDIA Poor R wave progression POSSIBLE INFERIOR MYOCARDIAL INFARCTION , OF INDETERMINATE AGE [30 ms Q WAVE IN II/aVF] Compared to ECG 03/10/2024 16:11:12 Atrial flutter no longer present Electronically Signed On 03-11-2024 13:48:46 RAIL TRACK MAINTAINER by Raymond Corey M.D.
[2024-03-10 19:04] LABS: Glucose Point of Care 226 mg/dl (65-105)
--- NOTE | 2024-03-10 19:11 | PC.NURSE ---
Pt. condition is deteriorating. No longer able to obtain 02 saturation from fingers. Pt. is not responsive to pain. Very difficult to draw blood peripherally d/t pt. poor perfusion. Bilateral arms, abdomen and legs are mottled. MD Panda notified. Verbal order given for norepinephrin. MD to bedside to place central line.
[2024-03-10 19:14] LABS: Troponin I < 0.012 ng/mL (0.000-0.034)
[2024-03-10 19:15] LABS: Alveolar/Arterial O2 Gradient 496.2 mmHg; Base Excess ABG -10.6 mEq/l (+/-2.0); Carboxyhemoglobin 2.9 % THb (0-2.0); Fractional Inspired Oxygen 100 %; HCO3 ABG 26.9 mEq/l (22.0-26.0); Methemoglobin ABG 0.4 %THb (0-1.5); Oxygen Content ABG 20.2 %vol (16.0-22.0); PO2 ABG 76.2 mmHg (80.0-100.0); PO2 FiO2 Ratio Arterial Blood 0.76 %; Reduced Hemoglobin 11.4 %THb (0-5.0); Total Hemoglobin 16.8 g/dL (12.0-18.0)
--- NOTE | 2024-03-10 19:17 | PC.NURSE ---
Norepinephrin initiated at 5mcg/min per MD Panda verbal order.
[2024-03-10 19:18] LABS: pH ABG 6.899 (7.350-7.450)
[2024-03-10 19:19] LABS: PCO2 ABG 140.6 mmHg (35.0-45.0)
[2024-03-10 19:20] LABS: Oxygen Saturation ABG 81.3 % (95.0-100.0); Oxyhemoglobin 85.3 % THb (90.0-100.0)
[2024-03-10 19:21] LABS: Arterial Blood Gas PEEP 5 cmH2O; Arterial Blood Gas Vent Mode CMV; Arterial Blood Gas Ventilator rate 16 /MIN; Device VENTILATOR; Modified Allen's Test Pass; Site Drawn RIGHT RADIAL
[2024-03-10 19:22] LABS: Arterial Blood Gas Tidal Volume 400 ml
--- NOTE | 2024-03-10 19:29 | PC.NURSE ---
Norepinephrin titrated up to 7mcg/min.
--- NOTE | 2024-03-10 19:43 | PC.NURSE ---
Norepinephrine titrated up to 20 mcg/min per MD Panda at bedside. Central line placement in R. femoral vein complete by Md Panda. Procedure emergent - no consent necessary.
--- NOTE | 2024-03-10 20:00 | PC.NURSE ---
Per MD Panda, ok to use central line without any additional imaging. All 3 lumens flush without resistance and draw back.
[2024-03-10] MEDS: MIDAZOLAM 100MG/NS 100ML(*CRX) 100 MG/100 ML BAG IV CONT (20:02)
[2024-03-10] MEDS: MIDAZOLAM HCL (*CRX) 2 MG/2 ML VIAL IV PUSH (20:15)
[2024-03-10] MEDS: IPRATROPIUM BR 0.02% INH SOLN 0.5 MG/2.5 ML VIAL INHALATION (20:38)
[2024-03-10] MEDS: MIDAZOLAM HCL (*CRX) 2 MG/2 ML VIAL 4 MG IV PUSH (21:21)
[2024-03-10] MEDS: fentaNYL CITRATE INJ (*CRX) 100 MCG/2 ML VIAL IV PUSH (21:22)
[2024-03-10] MEDS: NOREPINEPHRINE 8 MG/D5W 250 ML 8 MG/250 ML BAG 41.25 MG IV CONT (21:30)
[2024-03-10 21:43] LABS: Alveolar/Arterial O2 Gradient 535.3 mmHg; Base Excess ABG -12.1 mEq/l (+/-2.0); Carboxyhemoglobin 1.6 % THb (0-2.0); Fractional Inspired Oxygen 100 %; HCO3 ABG 19.5 mEq/l (22.0-26.0); Methemoglobin ABG 0.2 %THb (0-1.5); Oxygen Content ABG 19.8 %vol (16.0-22.0); Oxygen Saturation ABG 95.2 % (95.0-100.0); Oxyhemoglobin 94.8 % THb (90.0-100.0); PO2 ABG 106.8 mmHg (80.0-100.0); PO2 FiO2 Ratio Arterial Blood 1.07 %; Reduced Hemoglobin 3.4 %THb (0-5.0); Total Hemoglobin 14.8 g/dL (12.0-18.0)
[2024-03-10 21:45] LABS: pH ABG 7.057 (7.350-7.450)
[2024-03-10] MEDS: VASOPRESSIN INJ 100 UNITS in DEXTROSE 5% 95 ML IV CONT (21:45)
[2024-03-10 21:46] LABS: Arterial Blood Gas PEEP 5 cmH2O; Arterial Blood Gas Tidal Volume 500 ml; Arterial Blood Gas Vent Mode CMV; Arterial Blood Gas Ventilator rate 26 /MIN; Device VENTILATOR; Modified Allen's Test Pass; PCO2 ABG 70.9 mmHg (35.0-45.0); Site Drawn LEFT RADIAL
--- NOTE | 2024-03-10 21:55 | P.HP_ITS ---
H&P: HPI History of Present Illness Date/Time: 03/10/24 21:00 Chief Complaint: Shortness of breath. Narrative: This is a 63-year-old male smoker with unknown medical history who presented to the emergency department via EMS from home for evaluation of shortness of breath. He was intubated on arrival to the emergency department and he has never been seen at this facility before which makes the following history quite limited. His sister was contacted by the ED physician and gave minimal information. The patient has been staying with his sister who called 911 after the patient became acutely short of breath about an hour prior to the call. He was placed on a non-rebreather and an IO was inserted because they were unable to get an IV. The patient became agitated in route to the hospital and reportedly pulled out the IO and would did not tolerate the non-rebreather. He was diaphoretic, cyanotic, unable speak, and had labored breathing on arrival to the ED. In the ED: Vital signs on arrival include a temperature of 98.1?, blood pressure 114/79, pulse 133, SpO2 91% on non-rebreather. He was intubated on arrival. Initial ABG showed a pH of 7.053, pCO2 92.7, PO2 70.9, HC03 25.8. CMP and CBC were pretty unremarkable aside from a WBC count of 19.9 and a glucose of 219. Troponin was less than 0.012. He tested negative for influenza, RSV, COVID, and nasal MRSA. Head CT showed no acute intracranial hemorrhage but did note asymmetry of the posterior cranial fossa. Chest CTA showed no pulmonary embolus or aortic dissection but showed severe milian lobar emphysematous disease, left adrenal enlargement, and likely bilateral aspiration pneumonia. He was given a nebulizer treatment, hydrocortisone, cefepime 2 g, metronidazole 500 mg, and vancomycin 1250 mg. A central line was inserted and he has been started on norepinephrine and vasopressin. He is being admitted to the ICU in this setting. Review of Systems Review of Systems: Unable to be obtained given clinical condition. [facility] Past Medical History Medical History (Updated 03/11/24 @ 14:46 by Randi Rudolph PA-C) Medical history unknown Tobacco dependence Surgical History Surgical History (Updated 03/11/24 @ 14:46 by Randi Rudolph PA-C) Surgical history unknown Family History Family History (Updated 03/11/24 @ 14:46 by Randi Rudolph PA-C) Other Family history unknown Social History Social History Social History: Surrogate medical decision maker: Evelyne Menchaca ([phone]). Code status: Full code. Smoking packs per day: 2 Smoking cigarettes per day: 40.0 Smoking status: Heavy tobacco smoker Tobacco type: cigarettes Second hand tobacco smoke exposure: No Alcohol intake: current Substance use: current Substance use type: marijuana Spiritual care concerns: No Meds Home Medications and Allergies Home Medications ?Medication ?Instructions ?Recorded ?Confirmed ?Type albuterol sulfate 90 mcg/actuation 1 inh inhalation Q4-6H PRN 03/09/20 03/11/24 History breath activated powder shortness of breath or wheezing inhaler,sensor (Proair Digihaler) cyclobenzaprine 10 mg tablet 10 mg PO TID 03/09/20 03/11/24 History gabapentin 300 mg capsule 300 mg PO TID 03/09/20 03/11/24 History lisinopril 40 mg tablet 40 mg PO DAILY 03/09/20 03/11/24 History trazodone 50 mg tablet 50 mg PO HS PRN sleep 03/09/20 03/11/24 History diclofenac sodium 75 mg 75 mg PO Q12H 03/11/24 03/11/24 History tablet,delayed release famotidine 40 mg tablet 40 mg PO DAILY 03/11/24 03/11/24 History metoprolol tartrate 25 mg tablet 25 mg PO Q12H 03/11/24 03/11/24 History Allergies Allergy/AdvReac Type Severity Reaction Status Date / Time No Known Allergies Allergy Verified 01/05/21 15:07 Vital Signs Vital Signs - 24 hr 03/10/24 16:00 03/10/24 16:06 03/10/24 17:08 Temperature 98.1 F Pulse Rate 133 H 141 H 136 H Respiratory Rate 16 Blood Pressure 114/79 Pulse Oximetry 91 91 Oxygen Delivery Bag Valve Mask Mechanical Ventilation Fraction of Inspired Oxygen 100 03/10/24 17:15 03/10/24 17:27 03/10/24 17:39 Temperature Pulse Rate 135 H 133 H Respiratory Rate 16 Blood Pressure 111/95 H Pulse Oximetry 94 95 96 Oxygen Delivery Mechanical Ventilation Mechanical Ventilation Fraction of Inspired Oxygen 100 100 03/10/24 18:27 03/10/24 18:30 03/10/24 19:14 Temperature Pulse Rate 127 H 125 H 125 H Respiratory Rate 22 H 24 H Blood Pressure 107/96 H Pulse Oximetry 91 Oxygen Delivery Mechanical Ventilation Fraction of Inspired Oxygen 100 03/10/24 19:48 03/10/24 20:02 03/10/24 20:25 Temperature Pulse Rate 131 H 136 H 130 H Respiratory Rate 26 H 25 H 23 H Blood Pressure 117/100 H 97/55 L Pulse Oximetry 88 L 92 Oxygen Delivery Fraction of Inspired Oxygen 03/10/24 20:39 03/10/24 20:42 03/10/24 20:47 Temperature Pulse Rate 111 H 108 H 108 H Respiratory Rate 28 H 25 H Blood Pressure Pulse Oximetry 93 Oxygen Delivery Mechanical Ventilation Fraction of Inspired Oxygen 100 03/10/24 21:16 03/10/24 21:30 03/10/24 21:35 Temperature Pulse Rate 129 H 117 H 112 H Respiratory Rate 33 H Blood Pressure 52/38 L 74/63 L Pulse Oximetry Oxygen Delivery Fraction of Inspired Oxygen 03/10/24 21:45 Temperature Pulse Rate 111 H Respiratory Rate Blood Pressure 70/47 L Pulse Oximetry Oxygen Delivery Fraction of Inspired Oxygen Exam Narrative: General: Acutely appealing male intubated on mechanical ventilation. He is not responsive but is on no sedation. Weight: 89 kg. BMI: 30.4. HEENT: Normocephalic, atraumatic. Pupils are approximately 2 mm and are sluggishly reactive. Sclera anicteric. Conjunctiva mildly injected. Oral mucosa appears dry. Neck: Supple. No obvious JVD or lymphadenopathy. Respiratory: Intubated on mechanical ventilation. Coarse, diminished lung sounds heard anteriorly and at the flanks with end-expiratory wheezing. He is tachypne ic and breathing over the ventilator with respiratory rate in the upper 20s to low 30s. Cardiovascular: Tachycardic. Gastrointestinal: Abdomen is nondistended with positive bowel sounds. Skin: Cool and diaphoretic. Capillary refill is diminished. Hands and feet are cool to the touch. Extremities: No cyanosis, clubbing, or edema. Pedal pulses diminished but palpable. Neurological: Unresponsive. Does not withdrawal to pain. He is not on sedation. Psychiatric: Unable to assess. H&P: Results Labs Labs: Short CBC 03/10/24 Range/Units 16:21 WBC 19.9 H (4.5-10.0) K/mm3 Hgb 16.1 (14.0-18.0) g/dL Hct 49.4 (42.0-52.0) % Plt Count 386 H (150-375) k/mm3 BMP 03/10/24 03/10/24 16:21 16:36 Sodium 139 Potassium 4.5 Chloride 105 Carbon Dioxide 22 BUN 10 Creatinine 1.10 1.20 Glucose 219 H Calcium 8.9 Cardiac Enzymes 03/10/24 Range/Units 16:21 Troponin I < 0.012 (0.000-0.034) ng/mL Liver Function 03/10/24 Range/Units 16:21 Total Bilirubin 0.5 (0.2-1.3) mg/dL AST 30 (17-59) U/L ALT 28 (6-50) U/L Alkaline Phosphatase 94 (38-126) U/L Albumin 4.3 (3.5-5.1) g/dL Impressions Chest X-Ray 03/10/24 16:18 IMPRESSION: Adequate radiographic placement of both the endotracheal tube and orogastric tubes, as detailed above. Head CT 03/10/24 17:30 Impression: No acute intracranial hemorrhage. Asymmetry of the posterior cranial fossa, possibly related to patient positioning within the gantry with asymmetric visualization of the cisterna magna to the right of midline. Short-term follow-up is recommended, if the patient is clinically able. Chest CTA 03/10/24 18:29 IMPRESSION: No pulmonary embolus. No aortic dissection. Likely bilateral aspiration pneumonia, as detailed above. Severe panlobular emphysematous disease. Left adrenal enlargement for which follow-up examination may be performed when the patient is clinically able. ABG ABG results: 03/10/24 03/10/24 03/10/24 16:20 19:08 21:26 Puncture Site Right radial Right radial Left radial ABG pH 7.053 L* 6.899 L* 7.057 L* ABG pCO2 92.7 H* 140.6 H* 70.9 H* ABG pO2 70.9 L 76.2 L 106.8 H ABG PO2/FiO2 Ratio 0.71 0.76 1.07 ABG HCO3 25.2 26.9 H 19.5 L ABG O2 Saturation 85.1 L* 81.3 L* 95.2 ABG O2 Content 19.5 20.2 19.8 ABG Base Excess -8.0 -10.6 -12.1 A-a Gradient 549.4 496.2 535.3 Oxyhemoglobin 84.4 L* 85.3 L* 94.8 Carboxyhemoglobin 3.4 H 2.9 H 1.6 Reduced Hemoglobin 11.8 H 11.4 H 3.4 Total Hemoglobin 16.4 16.8 14.8 O2 Delivery Device Ventilator Ventilator Ventilator O2 Liters/Min Not Reportable Not Reportable Not Reportable Vent Rate 16 16 26 FiO2 100 100 100 Assessment and Plan Assessment and plan (1) Septic shock: Code(s): A41.9 - Sepsis, unspecified organism; R65.21 - Severe sepsis with septic shock Status: Acute (2) Aspiration pneumonia of both lungs: Code(s): J69.0 - Pneumonitis due to inhalation of food and vomit Status: Acute (3) Acute hypoxic on chronic hypercapnic respiratory failure: Code(s): J96.01 - Acute respiratory failure with hypoxia; J96.12 - Chronic respiratory failure with hypercapnia Status: Acute (4) Hyperglycemia: Code(s): R73.9 - Hyperglycemia, unspecified Status: Acute (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 Labs, imaging, EKG, and all reports were personally reviewed. He was intubated on arrival to the ED and a subsequent ABG showed worsening pCO2 however that is improving with further vent setting changes. Now that his pCO2 was coming down he is a bit more agitated and was temporarily sedated in given rocuronium with consideration to start Nimbex depending on his course. He received cefepime, metronidazole, and vancomycin in the emergency department. Change to piperacillin/tazobactam and vancomycin for now, pending sputum culture. Continue scheduled bronchodilators, and hydrocortisone 50 mg q.6 hours. Check Legionella and pneumococcal antigens as well as mycoplasma IgM. Over the course of several hours in the emergency department his blood pressures began to decline and a femoral central line was inserted by the ED physician. Currently he is on norepinephrine and vasopressin to maintain his MAP of at least 65 and a systolic blood pressure of at least 95 for adequate end-organ perfusion. His random glucose was over 200 thus will initiate sliding scale insulin, Accu-Cheks, and hypoglycemic protocol. Check hemoglobin A1c. Left adrenal gland was enlarged on CT scan and radiologist suggests follow-up imaging. She also suggest follow-up brain CT given asymmetry of posterior cranial fossa. The patient's home medications will be reviewed and resumed as appropriate. He remains a full code at this time. Quality VTE Prophylaxis VTE prophylaxis: pharmacologic ordered Hospitalist MIPS Advance Care Plan I have confirmed that the patient's Advanced Care Plan is present, code status is documented, or surrogate decision maker is listed in patient medical record.: Yes Medication Reconciliation I have utilized all available resources to obtain, update and review the patients current medications (includes all prescriptions, OTC, herbals, cannabis, and nutritional supplements).: Yes Critical Care Time Critical Care Time: Yes Total Critical Care Time: 55 Attestation: Due to a high probability of clinically significant, life threatening deterioration, the patient required my highest level of preparedness to intervene emergently and I personally spent this critical care time directly and personally managing the patient. This critical care time included obtaining a history; examining the patient; pulse oximetry; ordering and review of studies; arranging urgent treatment with development of a management plan; evaluation of patient's response to treatment; frequent reassessment; and discussions with other providers. It was exclusive of separately billable procedures and treating other patients and teaching time. Please see Assessment and Plan section and the rest of the note for further information on patient assessment and treatment.
--- NOTE | 2024-03-10 22:05 | PC.NURSE ---
Fentanyl administration initiated in a nurse note since a verbal order was given at that time. SEWING MACHINE ASSEMBLER requested that administration be charted in the MAR instead. Initiation back charted in MAR per ICU request.
[2024-03-10] MEDS: SODIUM BICARBONATE 8.4% 50 MEQ/50 ML SYRINGE IV PUSH (22:14)
[2024-03-10] MEDS: HYDROCORTISONE SODI SUCCINATE IVPB (22:20)
[2024-03-10] MEDS: DEXTROSE 5% IVPB (22:20)
[2024-03-10 22:24] LABS: Hemoglobin A1C 5.6 % (<5.7)
[2024-03-10] MEDS: metroNIDAZOLE 500 MG/ISO 100ML 500 MG/100 ML BAG 100 MG IVPB (22:33)
[2024-03-10] MEDS: HYDROCORTISONE SODIUM SUCCINATE 100 MG/2 ML VIAL 50 MG IV PUSH (22:42)
[2024-03-10 23:06] LABS: Glucose Point of Care 183 mg/dl (65-105)
--- NOTE | 2024-03-10 23:10 | ADMGEN ---
This patient, Darron Evans, was admitted to Intensive Care Unit-3. Patient/family oriented to hospital policies and general routines including ID bracelet, bed and alarms, visiting hours, pain management, procedures, bathroom and other care routines, personal items, smoking policy, room service/diet, and visiting hours. Information on how to activate the Rapid Response Team has been discussed. Patient/Family are encouraged to report perceived risks to care and to ask questions if they do not understand what they are told or what they should do.
[2024-03-10] MEDS: PIPERACILLN/TAZ 3.375GM/NS50ML 3.375 GM/50 ML BAG IVPB (23:22)
[2024-03-10 23:23] LABS: Troponin I 0.159 ng/mL (0.000-0.034)
[2024-03-11] VITALS (79 sets, daily range): BP systolic 68–117; BP diastolic 58–93; PULSE 87–124; RESP 15–28; TEMP 36.7–37.4; O2SAT 90–100
--- NOTE | 2024-03-11 01:15 | PC.NURSE ---
03/10/242104 Patient sitting up in bed, combative, and thrashing. Dr. Pritchett called by nursing supervisor core shop, Alexandra DE LA TORRE, and gave orders to increase sedation. Patient arrived on levo @ 20. Patient's sister called with update and admission questions. Sister unable to give much history. States she will bring medications when she visits tomorrow
[2024-03-11 01:27] LABS: MRSA (PCR) NOT DETECTED (NOT DETECTE)
[2024-03-11] MEDS: NOREPINEPHRINE 8 MG/D5W 250 ML 8 MG/250 ML BAG 41.25 MG IV CONT (01:30)
[2024-03-11] MEDS: IPRATROPIUM 0.5 MG/ALBUTEROL SULFATE 2.5 MG AMPUL.NEB 3 ML INHALATION ×4 (02:45→19:46)
[2024-03-11 04:46] LABS: Hematocrit 43.5 % (42.0-52.0); Hemoglobin 14.4 g/dL (14.0-18.0); Mean Corpuscular HGB Conc 33.1 g/dl (32-36); Mean Corpuscular Hemoglobin 29.9 pg (26-34); Mean Corpuscular Volume 90.4 fl (80-100); Mean Platelet Volume 9.5 fl (7.4-10.4); Platelet Count Result 316 k/mm3 (150-375); Red Blood Count 4.81 M/mm3 (4.6-6.20); Red Cell Distribution Width 14.2 % (11.5-14.5); White Blood Count 28.8 K/mm3 (4.5-10.0)
[2024-03-11] MEDS: HYDROCORTISONE SODIUM SUCCINATE 100 MG/2 ML VIAL 50 MG IV PUSH ×4 (05:03→23:57)
[2024-03-11] MEDS: PIPERACILLN/TAZ 3.375GM/NS50ML 3.375 GM/50 ML BAG IVPB (05:04)
[2024-03-11 05:05] LABS: Band Neutrophils Percent 1 % (0-6); Lymphocytes Absolute Manual 2.59 K/mm3 (1.1-4.5); Monocytes Absolute Manual 1.44 K/mm3 (0.1-0.90); Monocytes Percent Manual 5 % (3-9); Neutrophils Absolute Manual 24.76 K/mm3 (1.3-6.7); Neutrophils Percent Manual 85 % (46-73); Total Cells Counted 100
[2024-03-11 05:06] LABS: Anisocytosis 1+; Burr Cells 1+; Platelet Estimate Adequate (Adequate); Schistocytes None Seen
[2024-03-11 05:21] LABS: Alanine Aminotransferase 35 U/L (6-50); Albumin Level 3.8 g/dL (3.5-5.1); Alkaline Phosphatase 76 U/L (38-126); Anion Gap 7 mmol/L (4-12); Aspartate Amino Transferase 33 U/L (17-59); Bilirubin,Total 0.4 mg/dL (0.2-1.3); Blood Urea Nitrogen 11 mg/dL (9-20); Calcium 7.8 mg/dL (8.4-10.2); Carbon Dioxide 24 mmol/L (22-30); Chloride 107 mmol/L (98-107); Estimated CRCL calculation 75 ml/min; Estimated Glomerular Filt Rate > 60; Glucose 181 mg/dL (65-110); Magnesium 1.8 mg/dL (1.6-2.3); Phosphorus 4.4 mg/dL (2.5-4.5); Sodium 138 mmol/L (137-145)
[2024-03-11 05:22] LABS: Glucose Point of Care 206 mg/dl (65-105)
[2024-03-11 05:23] LABS: Troponin I 0.164 ng/mL (0.000-0.034)
[2024-03-11] MEDS: INSULIN ASPART (*BKC) 100 UNITS/ML SUB-Q ×2 (05:27→12:49)
[2024-03-11 05:30] LABS: Alveolar/Arterial O2 Gradient 374.6 mmHg; Carboxyhemoglobin 0.3 % THb (0-2.0); Fractional Inspired Oxygen 80 %; HCO3 ABG 21.4 mEq/l (22.0-26.0); Methemoglobin ABG 0.2 %THb (0-1.5); Oxygen Saturation ABG 98.2 % (95.0-100.0); Oxyhemoglobin 98.2 % THb (90.0-100.0); PCO2 ABG 55.1 mmHg (35.0-45.0); PO2 FiO2 Ratio Arterial Blood 1.73 %; Reduced Hemoglobin 1.3 %THb (0-5.0); Total Hemoglobin 14.3 g/dL (12.0-18.0)
[2024-03-11 05:31] LABS: Arterial Blood Gas PEEP 5 cmH2O; Arterial Blood Gas Tidal Volume 500 ml; Arterial Blood Gas Vent Mode CMV; Arterial Blood Gas Ventilator rate 26 /MIN; Device VENTILATOR; Modified Allen's Test Pass; Site Drawn LEFT RADIAL; pH ABG 7.208 (7.350-7.450)
--- NOTE | 2024-03-11 07:57 | PC.NURSE ---
03/10/242104 patient arrived to ICU 3 with Norepinephrine infusing at 20 mcg/min - initiated in the ED. 03/10/24 2200 No rate change: Norepinephrine infusing at 20mcg/min. HR 108 BP 77/68 03/11/25 0000 No rate change: Norepinephrine infusing at 20mcg/min. HR 89 BP 84/73.
--- NOTE | 2024-03-11 08:00 | ECHO_ITS ---
Patient Info Name: Darron Evans Age: 63 years : 1960 Gender: Male Ht: 71 in Wt: 218 lbs BSA: 2.25 m2 HR: 90 bpm BP: 75 / 61 mmHg Heart Rhythm: Tachycardia Technical Quality: Fair Exam Date: 03/11/2024 12:08 PM Site Location: ICU 3 Exam Location: Echo Lab Patient Status: Inpatient Admit Date: 03/10/2024 Staff Ordering Physician: Randi Rudolph PA-C Youth Associate: Irma Malone RDCS Attending Provider: Norma Hong MD Referring Physician: Ronni RICE; Exam Type: CA echo doppler color flow Study Info Complete two-dimensional, color flow and Doppler transthoracic echocardiogram is performed. Summary 1. Complete two-dimensional, color flow and Doppler transthoracic echocardiogram is performed. 2. Left ventricular systolic function is normal, estimated at 60-65%. Hypokinesis of mirza-septum, apical septum, apex and apical anterior valencia. 3. The left ventricular diastolic function is grade II diastolic dysfunction. 4. There is trace mitral valve regurgitation. 5. There is trace tricuspid valve regurgitation. 6. No pulmonary hypertension, estimated pulmonary arterial systolic pressure is 19 mmHg. Left Ventricle Left ventricular chamber dimension is normal. Left ventricular systolic function is normal, estimated at 60-65%. Hypokinesis of mirza-septum, apical septum, apex and apical anterior valencia. There is no increased left ventricular wall thickness. Left ventricular septal wall motion is normal. The left ventricular diastolic function is grade II diastolic dysfunction. Right Ventricle Right ventricular chamber dimension is normal. Right ventricular systolic function is normal. Left Atria Left atrial chamber dimension is normal. Right Atria Right atrial chamber dimension is normal. Atrial Septum Intact interatrial septum visualized by color flow imaging. Aortic Valve The aortic valve is not well visualized. There is no aortic valve sclerosis. There is no aortic valve stenosis. There is no aortic valve regurgitation. Pulmonic Valve The pulmonic valve is normal. There is no pulmonic valve stenosis. There is no pulmonic regurgitation. Mitral Valve The mitral valve has normal leaflets. There is no mitral valve stenosis. There is trace mitral valve regurgitation. Tricuspid Valve The tricuspid valve leaflets are normal. There is no significant tricuspid valve stenosis. There is trace tricuspid valve regurgitation. No pulmonary hypertension, estimated pulmonary arterial systolic pressure is 19 mmHg. Pericardium/Pleural The pericardium appears normal. There is no pericardial effusion. Inferior Vena Cava Normal inferior vena cava with >50% collapse upon inspiration consistent with Empty right atrial pressure, 5 mmHg. Aorta The aortic root size at the sinus of Valsalva is normal. The prox ascending aorta size is normal. Left Ventricular Outflow Tract Name Value Normal LVOT 2D LVOT Diameter 2.4 cm LVOT Doppler LVOT Peak Gradient 7 mmHg LVOT Mean Gradient 4 mmHg LVOT VTI 22 cm LVOT VTI/AV VTI Ratio 0.7 LVOT Stroke Volume 103 ml LVOT CO 10.4 l/min LVOT CI 4.6 l/min/m2 Pulmonic Valve Name Value Normal PV Doppler PV Peak Gradient 4 mmHg Mitral Valve Name Value Normal MV Doppler MV Peak Gradient 11 mmHg MV Mean Gradient 5 mmHg MV Decel Concho 584 cm/s2 MV PHT 44 ms MV Area (PHT) 5.0 cm2 4.0-5.0 MV Area (Cont Eq VTI) 2.9 cm2 MV Regurgitation Doppler MR Peak Gradient 170 mmHg MV Diastolic Function MV E Peak Velocity 89 cm/s MV A Peak Velocity 111 cm/s MV E/A 0.8 MV Decel Time 152 ms MV Annular TDI MV E/e' (Septal) 6.9 <=8.0 MV E/e' (Lateral) 6.2 <=8.0 MV E/e' (Average) 6.6 Tricuspid Valve Name Value Normal TV Regurgitation Doppler TR Peak Velocity 190 cm/s TR Peak Gradient 14 mmHg Estimated PAP/RSVP RA Pressure 5 mmHg <=5 PA Systolic Pressure 19 mmHg <36 RV Systolic Pressure 19 mmHg <36 Aortic Valve Name Value Normal AV Doppler AV Peak Velocity 203 cm/s AV Peak Gradient 17 mmHg AV Mean Gradient 9 mmHg AV VTI 31 cm AV Area (Cont Eq VTI) 3.3 cm2 >=3.0 AV Area (Cont Eq Sushil) 3.0 cm2 AV Regurgitation 2D LVOT Area 4.7 cm2 Ventricles Name Value Normal LV Dimensions 2D/MM IVS Diastolic Thickness (2D) 0.9 cm 0.6-1.0 LVID Diastole (2D) 5.0 cm 4.2-5.8 LVIW Diastolic Thickness (2D) 0.9 cm 0.6-1.0 LVID Systole (2D) 3.7 cm 2.5-4.0 LVOT Diameter 2.4 cm LV Mass (2D Cubed) 168.61 g 88.00-224.00 LV Mass Index (2D Cubed) 75 g/m2 49-115 Relative Wall Thickness (2D) 0.38 LV Fractional Shortening/Ejection Fraction 2D/MM LV Fractional Shortening (2D) 26 % 25-43 LV EF (2D Teicholz) 51 % 52-72 LV Diastolic Volume (4C MOD) 191 ml LV EF (4C MOD) 58 % LV Diastolic Length (4C) 9.8 cm LV Systolic Length (4C) 8.6 cm LV Stroke Volume (4C MOD) 111 ml Atria Name Value Normal LA Dimensions LA Volume (4C A-L) 66 ml RA Dimensions RA Area (4C) 14.9 cm2 <=18.0 Report Signatures
[2024-03-11] MEDS: NOREPINEPHRINE 8 MG/D5W 250 ML 8 MG/250 ML BAG 39.38 MG IV CONT ×2 (08:03→13:49)
[2024-03-11] MEDS: ENOXAPARIN 40 MG/0.4 ML SYRINGE SUB-Q (08:24)
[2024-03-11] MEDS: PANTOPRAZOLE SODIUM IV 40 MG VIAL IV PUSH (08:24)
[2024-03-11] MEDS: ASPIRIN 81 MG CHEWABLE TABLET PO (08:24)
--- NOTE | 2024-03-11 08:59 | P.CONCA_ITS ---
Assessment and Plan Assessment and plan (1) Troponin level elevated: Code(s): R79.89 - Other specified abnormal findings of blood chemistry Status: Acute (2) Septic shock: Code(s): A41.9 - Sepsis, unspecified organism; R65.21 - Severe sepsis with septic shock Status: Acute (3) Aspiration pneumonia of both lungs: Code(s): J69.0 - Pneumonitis due to inhalation of food and vomit Status: Acute (4) Acute hypercapnic respiratory failure: Code(s): J96.02 - Acute respiratory failure with hypercapnia Status: Acute (5) Acute hypoxemic respiratory failure: Code(s): J96.01 - Acute respiratory failure with hypoxia Status: Acute (6) Tobacco dependence: Code(s): F17.200 - Nicotine dependence, unspecified, uncomplicated Status: Acute Plan This 63-year-old patient with history of coronary stent, lifelong murmur, hypertension, chronic tobacco you use, COPD who developed shortness of breath that required intubation. His hypotensive requiring vasopressors Levophed. -troponin elevation -acute hypoxemic and hypercapnic respiratory failure -acute on chronic COPD exacerbation -bilateral aspiration pneumonia -leukocytosis -cardiac murmur suspect severe aortic stenosis -history of coronary stent * in regards to troponin elevation, troponin elevated mildly and trended down. EKG shows sinus tachycardia with no evidence of ischemia. Most likely this is demand ischemia secondary to sepsis. Obtain echo -in regards to cardiac murmur, best on exam he has severe aortic stenosis. If confirmed by echo I will follow-up the patient in my office and then discuss options to replace the aortic valve surgical versus TAVR. -in regards to septic shock on bilateral aspiration pneumonia, continue vasopressors and wean as tolerated. Continue broad-spectrum antibiotic -in regards to history of coronary stent, unknown details. Continue aspirin. -in regards to history of hypertension, currently he is hypotensive requiring pressors. History of Present Illness History of Present Illness Consult date/time: Date of service 03/11/24 08:59 Requesting physician: Summer Pritchett MD Consult reason: Other (Elevated troponins, sepsis) Reason For Visit: aspiration pneumonia Narrative: This 63-year-old with past history of lifelong murmur, hypertension, COPD, tobacco use and history of coronary stent(unknown details) who stays with his sister and apparently started to have shortness of breath for 1 hour before calling EMS. EMS transfer the patient here and placed on non-rebreather however patient was severely short of breath with inability to tolerate non-rebreather and became cyanotic and was intubated in the emergency room. Initial blood pressure 110/70 however patient after that became hypotensive this with systolic blood pressure in the 70s. Currently patient is being treated with aspirin, broad-spectrum antibiotics. Apparently patient was homeless and eventually his sister allowed him to live with her. Initial white cell count 20 K, left shift, pH 6.9, carbon dioxide 140 and oxygen 76. Creatinine 1.2, initial troponin negative and then 0.159, 0.164. CTA thorax shows severe emphysema and bilateral aspiration pneumonia. Pulmonary embolism was ruled out. Initial EKG shows possible atrial tachycardia with septal Q-waves and repeat EKG showed sinus tachycardia with septal Q-waves but no ischemic changes. Review of Systems 2 Review of Systems: ROS unobtainable: Yes unobtainable due to endotracheal tube PMFSH Past Medical History Medical History Tobacco dependence Social History Social History Social History: Surrogate medical decision maker: Evelyne Menchaca ([phone]). Code status: Full code. Smoking packs per day: 2 Smoking cigarettes per day: 40.0 Smoking status: Heavy tobacco smoker Tobacco type: cigarettes Second hand tobacco smoke exposure: No Alcohol intake: current Substance use: current Substance use type: marijuana Spiritual care concerns: No Meds Home Medications and Allergies Home Medications ?Medication ?Instructions ?Recorded ?Confirmed ?Type albuterol sulfate 90 mcg/actuation 1 inh inhalation Q4-6H PRN 03/09/20 03/11/24 History breath activated powder shortness of breath or wheezing inhaler,sensor (Proair Digihaler) cyclobenzaprine 10 mg tablet 10 mg PO TID 03/09/20 03/11/24 History gabapentin 300 mg capsule 300 mg PO TID 03/09/20 03/11/24 History lisinopril 40 mg tablet 40 mg PO DAILY 03/09/20 03/11/24 History trazodone 50 mg tablet 50 mg PO HS PRN sleep 03/09/20 03/11/24 History diclofenac sodium 75 mg 75 mg PO Q12H 03/11/24 03/11/24 History tablet,delayed release famotidine 40 mg tablet 40 mg PO DAILY 03/11/24 03/11/24 History metoprolol tartrate 25 mg tablet 25 mg PO Q12H 03/11/24 03/11/24 History Allergies Allergy/AdvReac Type Severity Reaction Status Date / Time No Known Allergies Allergy Verified 01/05/21 15:07 Vital Signs Vital Signs - 24 hr 03/10/24 16:00 03/10/24 16:06 03/10/24 16:20 Temperature 36.7 C Pulse Rate 133 H 141 H 120 H Respiratory Rate 24 H Blood Pressure 114/79 Pulse Oximetry 91 91 Oxygen Delivery Bag Valve Mask Mechanical Ventilation Fraction of Inspired Oxygen 100 03/10/24 17:08 03/10/24 17:15 03/10/24 17:27 Temperature Pulse Rate 136 H 135 H 133 H Respiratory Rate 16 16 Blood Pressure 111/95 H Pulse Oximetry 94 95 Oxygen Delivery Mechanical Ventilation Fraction of Inspired Oxygen 100 03/10/24 17:39 03/10/24 18:27 03/10/24 18:30 Temperature Pulse Rate 127 H 125 H Respiratory Rate 22 H Blood Pressure Pulse Oximetry 96 91 Oxygen Delivery Mechanical Ventilation Mechanical Ventilation Fraction of Inspired Oxygen 100 100 03/10/24 19:14 03/10/24 19:48 03/10/24 20:02 Temperature Pulse Rate 125 H 131 H 136 H Respiratory Rate 24 H 26 H 25 H Blood Pressure 107/96 H 117/100 H Pulse Oximetry 88 L Oxygen Delivery Fraction of Inspired Oxygen 03/10/24 20:25 03/10/24 20:39 03/10/24 20:42 Temperature Pulse Rate 130 H 111 H 108 H Respiratory Rate 23 H 28 H Blood Pressure 97/55 L Pulse Oximetry 92 93 Oxygen Delivery Mechanical Ventilation Fraction of Inspired Oxygen 100 03/10/24 20:47 03/10/24 21:05 03/10/24 21:05 Temperature Pulse Rate 108 H 112 H Respiratory Rate 25 H 26 H Blood Pressure Pulse Oximetry 95 Oxygen Delivery Mechanical Ventilation Fraction of Inspired Oxygen 100 100 03/10/24 21:15 03/10/24 21:16 03/10/24 21:16 Temperature 36.7 C Pulse Rate 112 H 129 H 112 H Respiratory Rate 22 H 33 H 33 H Blood Pressure 89/75 L Pulse Oximetry 95 Oxygen Delivery Fraction of Inspired Oxygen 03/10/24 21:30 03/10/24 21:35 03/10/24 21:45 Temperature Pulse Rate 117 H 112 H 111 H Respiratory Rate Blood Pressure 52/38 L 74/63 L 70/47 L Pulse Oximetry Oxygen Delivery Fraction of Inspired Oxygen 03/10/24 22:00 03/10/24 22:00 03/10/24 22:00 Temperature Pulse Rate 108 H 108 H Respiratory Rate 26 H 26 H Blood Pressure 77/68 L Pulse Oximetry 95 Oxygen Delivery Fraction of Inspired Oxygen 80 03/10/24 22:00 03/10/24 22:00 03/10/24 22:00 Temperature Pulse Rate 108 H 108 H 108 H Respiratory Rate 26 H Blood Pressure 77/68 L 77/68 L Pulse Oximetry Oxygen Delivery Fraction of Inspired Oxygen 03/10/24 22:00 03/10/24 23:00 03/10/24 23:00 Temperature Pulse Rate 108 H 94 94 Respiratory Rate 26 H 26 H Blood Pressure Pulse Oximetry Oxygen Delivery Fraction of Inspired Oxygen 03/10/24 23:00 03/10/24 23:00 03/10/24 23:00 Temperature Pulse Rate 94 94 94 Respiratory Rate 26 H Blood Pressure 86/74 L 86/74 L 86/74 L Pulse Oximetry 93 Oxygen Delivery Fraction of Inspired Oxygen 03/10/24 23:20 03/11/24 00:00 03/11/24 00:00 Temperature Pulse Rate 94 89 89 Respiratory Rate 26 H Blood Pressure 84/73 L Pulse Oximetry 90 Oxygen Delivery Mechanical Ventilation Fraction of Inspired Oxygen 80 03/11/24 00:00 03/11/24 00:00 03/11/24 00:00 Temperature Pulse Rate 89 89 89 Respiratory Rate 26 H Blood Pressure 84/73 L Pulse Oximetry Oxygen Delivery Fraction of Inspired Oxygen 03/11/24 00:00 03/11/24 00:00 03/11/24 00:00 Temperature 36.7 C Pulse Rate 89 89 Respiratory Rate 26 H 26 H Blood Pressure 84/73 L Pulse Oximetry 93 93 Oxygen Delivery Mechanical Ventilation Fraction of Inspired Oxygen 80 80 03/11/24 00:15 03/11/24 00:15 03/11/24 01:00 Temperature Pulse Rate 88 90 87 Respiratory Rate 26 H Blood Pressure 78/67 L 75/64 L Pulse Oximetry Oxygen Delivery Fraction of Inspired Oxygen 03/11/24 01:00 03/11/24 01:00 03/11/24 01:00 Temperature Pulse Rate 87 87 87 Respiratory Rate 26 H 26 H Blood Pressure 75/64 L Pulse Oximetry Oxygen Delivery Fraction of Inspired Oxygen 03/11/24 01:25 03/11/24 01:30 03/11/24 02:00 Temperature Pulse Rate 90 90 88 Respiratory Rate 26 H Blood Pressure 77/63 L 81/69 L Pulse Oximetry Oxygen Delivery Fraction of Inspired Oxygen 03/11/24 02:00 03/11/24 02:00 03/11/24 02:00 Temperature Pulse Rate 88 88 88 Respiratory Rate 26 H Blood Pressure 79/64 L 79/64 L Pulse Oximetry Oxygen Delivery Fraction of Inspired Oxygen 03/11/24 02:00 03/11/24 02:00 03/11/24 02:15 Temperature Pulse Rate 89 89 89 Respiratory Rate 26 H 26 H Blood Pressure 79/64 L Pulse Oximetry 96 Oxygen Delivery Fraction of Inspired Oxygen 03/11/24 02:15 03/11/24 02:15 03/11/24 02:30 Temperature Pulse Rate 89 90 91 Respiratory Rate 26 H Blood Pressure 81/70 L 76/66 L Pulse Oximetry Oxygen Delivery Fraction of Inspired Oxygen 03/11/24 02:30 03/11/24 02:46 03/11/24 02:46 Temperature Pulse Rate 91 90 90 Respiratory Rate 26 H 26 H Blood Pressure Pulse Oximetry 96 Oxygen Delivery Mechanical Ventilation Fraction of Inspired Oxygen 80 03/11/24 02:53 03/11/24 03:00 03/11/24 03:15 Temperature Pulse Rate 90 90 92 Respiratory Rate 26 H 26 H Blood Pressure 79/68 L Pulse Oximetry Oxygen Delivery Fraction of Inspired Oxygen 03/11/24 03:30 03/11/24 03:30 03/11/24 04:00 Temperature 37.2 C Pulse Rate 93 93 93 Respiratory Rate 26 H 26 H Blood Pressure 80/64 L 79/68 L Pulse Oximetry 97 Oxygen Delivery Fraction of Inspired Oxygen 03/11/24 04:00 03/11/24 04:00 03/11/24 04:00 Temperature Pulse Rate 93 92 Respiratory Rate Blood Pressure 79/68 L 79/68 L Pulse Oximetry Oxygen Delivery Fraction of Inspired Oxygen 80 03/11/24 04:00 03/11/24 04:00 03/11/24 04:15 Temperature Pulse Rate 93 93 93 Respiratory Rate 26 H 26 H Blood Pressure Pulse Oximetry 97 Oxygen Delivery Mechanical Ventilation Fraction of Inspired Oxygen 80 03/11/24 04:30 03/11/24 04:45 03/11/24 05:00 Temperature Pulse Rate 93 92 91 Respiratory Rate 26 H Blood Pressure 68/58 L 79/68 L Pulse Oximetry Oxygen Delivery Fraction of Inspired Oxygen 03/11/24 05:00 03/11/24 05:30 03/11/24 05:32 Temperature Pulse Rate 91 93 92 Respiratory Rate 26 H Blood Pressure 79/68 L Pulse Oximetry 100 Oxygen Delivery Mechanical Ventilation Fraction of Inspired Oxygen 80 03/11/24 06:00 03/11/24 06:00 03/11/24 06:00 Temperature Pulse Rate 89 91 91 Respiratory Rate Blood Pressure 78/67 L 78/67 L Pulse Oximetry Oxygen Delivery Fraction of Inspired Oxygen 03/11/24 06:00 03/11/24 06:00 03/11/24 07:58 Temperature Pulse Rate 91 91 90 Respiratory Rate 26 H 26 H 28 H Blood Pressure 78/67 L Pulse Oximetry 100 99 Oxygen Delivery Mechanical Ventilation Fraction of Inspired Oxygen 60 03/11/24 07:58 03/11/24 07:58 03/11/24 08:00 Temperature Pulse Rate 90 90 90 Respiratory Rate 28 H Blood Pressure 75/61 L Pulse Oximetry 99 Oxygen Delivery Mechanical Ventilation Fraction of Inspired Oxygen 60 03/11/24 08:00 03/11/24 08:00 03/11/24 08:00 Temperature Pulse Rate 90 90 90 Respiratory Rate 15 15 Blood Pressure 75/61 L Pulse Oximetry Oxygen Delivery Fraction of Inspired Oxygen 03/11/24 08:00 03/11/24 08:03 03/11/24 08:07 Temperature 37.1 C Pulse Rate 90 90 93 Respiratory Rate 26 H 23 H Blood Pressure 89/74 L 75/61 L Pulse Oximetry 99 Oxygen Delivery Fraction of Inspired Oxygen 03/11/24 08:08 03/11/24 08:10 Temperature Pulse Rate 90 90 Respiratory Rate 15 Blood Pressure 75/61 L Pulse Oximetry Oxygen Delivery Fraction of Inspired Oxygen Exam 2 Narrative: No acute distress Const: General: no acute distress HENMT: Face/Nose/Sinus: no epistaxis Neck: Thyroid: thyroid normal Resp: Auscultation: diminished lung sounds Cardio: Rate: regular rate Rhythm: regular rhythm Heart sounds: Murmur heart sound present Other: Murmur consistent with severe aortic stenosis GI: GI Palp: Yes Soft to palpation and No Tenderness to palpation present (GI) Skin: Rashes: no rashes noted Neuro: Other: Unable to assess due to being intubated and sedated Extrem: General: normal to inspection Psych: Other: Unable to assess due to being intubated Results Labs and Meds 03/11/24 04:36 03/11/24 04:36 Lab results: Cardiac Enzymes 03/10/24 03/10/24 03/11/24 Range/Units 16:21 22:37 04:36 AST 30 33 (17-59) U/L Troponin I < 0.012 0.159 H* D 0.164 H* (0.000-0.034) ng/mL CBC 03/10/24 03/11/24 Range/Units 16:21 04:36 WBC 19.9 H 28.8 H (4.5-10.0) K/mm3 RBC 5.33 4.81 (4.6-6.20) M/mm3 Hgb 16.1 14.4 (14.0-18.0) g/dL Hct 49.4 43.5 (42.0-52.0) % Plt Count 386 H 316 (150-375) k/mm3 Lymph # (Auto) 7.91 H Not Reportable (0.9-3.2) K/mm3 [place] # (Auto) 1.2 H Not Reportable (0.1-0.6) K/mm3 Eos # (Auto) 0.4 H Not Reportable (0-0.3) K/mm3 Baso # (Auto) 0.2 H Not Reportable (0.0-0.1) K/mm3 Comprehensive Metabolic Panel 03/10/24 03/10/24 03/11/24 Range/Units 16:21 16:36 04:36 Sodium 139 138 (137-145) mmol/L Potassium 4.5 5.0 (3.4-5.0) mmol/L Chloride 105 107 (98-107) mmol/L Carbon Dioxide 22 24 (22-30) mmol/L BUN 10 11 (9-20) mg/dL Creatinine 1.10 1.20 1.10 (0.7-1.3) mg/dL Glucose 219 H 181 H (65-110) mg/dL Calcium 8.9 7.8 L (8.4-10.2) mg/dL AST 30 33 (17-59) U/L ALT 28 35 (6-50) U/L Alkaline Phosphatase 94 76 (38-126) U/L Total Protein 7.0 7.0 (6.3-8.2) g/dL Albumin 4.3 3.8 (3.5-5.1) g/dL Intake and Output 03/10/24 03/11/24 03/11/24 23:59 07:59 15:59 Intake Total 1838.5 591.0 111.0 Output Total 1030 Balance 1838.5 -439.0 111.0 Intake: IV 1838.5 591.0 111.0 Fentanyl 2,500Mcg/[id number](*Crx 59.4 109.4 26.2 2,500 mcg In 250 ml @ 150 MCG/ HR 15 mls/hr IV CONT .[id number] [facility] Rx#:[id number] Midazolam 100Mg/Ns 100Ml(*Crx) 15.7 40.9 6.4 100 mg In 100 ml @ 6 MG/HR 6 mls/hr IV CONT .[id number] [facility] Rx# :[id number] Norepinephrine 8 mg/D5w 250 ml 61.9 278.3 76.0 8 mg In 250 ml @ 21 MCG/MIN 39. 375 mls/hr IV CONT .Q6H21M [facility] Rx#:[id number] Sodium Chloride 0.9% IV 1,000 1000 ml @ 999 mls/hr IV CONT .Q1H1M [facility] Rx#:[id number] Vasopressin Inj 100 units In 1.5 8.4 2.4 Dextrose 5% 95 ml @ 0.02 UNITS/ MIN 1.2 mls/hr IV CONT .Q72H [facility] Rx#:[id number] Cefepime 2 gm/Ns 50 ml 2 gm In 50 50 ml @ 100 mls/hr IVPB ONCE STA Rx#:[id number] Hydrocortisone Sodi Succinate 104 500 mg In Dextrose 5% 100 ml @ 50 mls/hr IVPB ONCE ONE Rx#: [id number] Piperacilln/Chao 3.375GM/Ns50ml 50 50 3.375 gm In 50 ml @ 100 mls/hr IVPB Q6HR [facility] Rx#:[id number] Vancomycin 1,250 mg/Ns 250 ml 1 500 ,250 mg In 250 ml @ 166.667 mls /hr IVPB ONCE ONE Rx#:[id number] metroNIDAZOLE 500 MG/ISO 100ML 100 500 mg In 100 ml @ 100 mls/hr IVPB ONCE STA Rx#:[id number] Oral 0 Output: Catheter Urine 850 Urethral Catheter 850 Gastric Drainage 180 Tyler Sump Oral 180 Patient Weight 03/11/24 23:59 Weight 99 kg
--- NOTE | 2024-03-11 09:25 | P.CONIN_ITS ---
Assessment and Plan Assessment and plan (1) Septic shock: Code(s): A41.9 - Sepsis, unspecified organism; R65.21 - Severe sepsis with septic shock Status: Acute Assessment and Plan: Septic shock, likely related bilateral pneumonia -03/11: changed Zosyn to 4.5 g IV q.6 hours, -03/11: Add vancomycin and azithromycin -03/10: Blood cultures have been obtained and pending -03/10: Sputum cultures have been obtained and pending -lactic acid elevated to 4.1 -patient has received adequate amount of IV fluid -will give albumin for volume expansion -monitor urine output and renal function (2) Acute hypercapnic respiratory failure: Code(s): J96.02 - Acute respiratory failure with hypercapnia Status: Acute Assessment and Plan: 03/10: Patient presented with acute respiratory distress from home, decreased O2 sats and altered mental status. Was found to have Acute hypercapnic respiratory failure in the ER, -influenza, RSV and SARS-CoV-2 PCR were negative on admission 03/10: Intubated in the ER -currently on CMV mode of ventilation, peep of 5 in 80% FiO2 ABGs reviewed, will wean FiO2 to maintain O2 sats > 90-92% this patient has COPD - continue bronchodilators -bilateral pneumonia on CTA chest, likely aspiration -antibiotics as above Sedated with fentanyl and Versed infusion, maintain RASS of 0 to -2, S daily SBT and SAT. 03/10/2024: CTA chest PE protocol IMPRESSION: No pulmonary embolus. No aortic dissection. Likely bilateral aspiration pneumonia, as detailed above. Severe panlobular emphysematous disease. Left adrenal enlargement for which follow-up examination may be performed when the patient is clinically able. (3) Pneumonia: Code(s): J18.9 - Pneumonia, unspecified organism Status: Acute Assessment and Plan: Continue antibiotics as above -sputum cultures have been obtained and pending -. Patient has been started on hydrocortisone 50 mg IV q.6 hours for pneumonia (4) Troponin level elevated: Code(s): R79.89 - Other specified abnormal findings of blood chemistry Status: Acute Assessment and Plan: Elevated troponin level <0.012, 0.159, 0.164. Could be related to ischemic demand secondary to respiratory failure, septic shock, hypotension -EKG did not show any ST elevation, Q-wave changes in the anterior lead -started patient on aspirin -obtain echocardiogram -appreciate Cardiology evaluation and recommendation -this patient also has a cardiac murmur, ejection systolic likely related to aortic stenosis. 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 This critical care time included obtaining a history; examining the patient; pulse oximetry; ordering and review of studies; arranging urgent treatment with development of a management plan; evaluation of patient's response to treatment; frequent reassessment; and discussions with other providers. It was exclusive of separately billable procedures and treating other patients and teaching time. Please see Assessment and Plan section and the rest of the note for further information on patient assessment and treatment This dictation may have been done utilizing a voice recognition system. Attempts have been made to correct errors. However, there may be uncorrected grammatical, spelling, and recognitions errors present. Chief Catalyst Operator Consult Note Consult date: 03/11/24 Reason for consult: Acute hyper cap respiratory failure, septic shock, bilateral pneumonia, leukocytosis HPI: Darron Evans is a 63 year old male with past medical history of tobacco dependence, COPD, GERD, hypertension, presented on 03/10 with complains of acute onset of shortness of breath. Upon arrival of the EMS to his house, patient was in respiratory distress, altered mentation, agitated/combative, hypoxic he was placed on oxygen by EMS, became agitated and combative and was given Versed prior to arrival to the ER. In the ED patient had bilateral JVDs, barely audible breath sounds and prolonged expiratory phase, patient was intubated upon arrival to the ICU, ABGs showed hypercapnic respiratory failure with initial ABGs showed a pH of 7.053, pCO2 of 92, PO2 of 70 with a HC03 of 25.2. repeat ABGs after he was on the vent worse with pH of 6.89, pCO2 140, PO2 76, bicarb 27. I asked the hospitalist STEPHANE to make some ventilator changes, with following gases much improved. In the ER patient was afebrile, tachycardic. WBC count 19.9, glucose of 219. Initial Troponin was <0.012. Repeat troponin was 0.159 and 0.164. EKG showed septal Q-waves but no ischemic changes. Chest CTA: No pulmonary embolism, no aortic dissection, likely bilateral aspiration pneumonia, severe panlobular emphysematous disease. Left adrenal enlargement. Patient was started on cefepime,, vancomycin and Flagyl. He was then switched to Zosyn and vancomycin when he arrived in ICU. Patient was transferred to the ICU for further management Patient seen and examined the ICU this morning, patient remains intubated, on CMV mode of ventilation, peep of 5, 80% FiO2. Sedated with fentanyl and Versed infusion. Patient does not open his eyes or follow simple commands, withdraws to pain in all extremities remains on vasopressin and Levophed, urine output has been adequate, afebrile. Patient does have a leukocytosis of 28.8 Review of Systems 2 Review of Systems: ROS unobtainable: Yes unobtainable due to endotracheal tube, unobtainable due to medical condition and unobtainable due to mental status PMFSH Past Medical History Medical History Tobacco dependence Social History Social History Social History: Surrogate medical decision maker: Evelyne Menchaca ([phone]). Code status: Full code. Smoking packs per day: 2 Smoking cigarettes per day: 40.0 Smoking status: Heavy tobacco smoker Tobacco type: cigarettes Second hand tobacco smoke exposure: No Alcohol intake: current Substance use: current Substance use type: marijuana Spiritual care concerns: No Meds Home Medications and Allergies Home Medications ?Medication ?Instructions ?Recorded ?Confirmed ?Type albuterol sulfate 90 mcg/actuation 1 inh inhalation Q4-6H PRN 03/09/20 03/11/24 History breath activated powder shortness of breath or wheezing inhaler,sensor (Proair Digihaler) cyclobenzaprine 10 mg tablet 10 mg PO TID 03/09/20 03/11/24 History gabapentin 300 mg capsule 300 mg PO TID 03/09/20 03/11/24 History lisinopril 40 mg tablet 40 mg PO DAILY 03/09/20 03/11/24 History trazodone 50 mg tablet 50 mg PO HS PRN sleep 03/09/20 03/11/24 History diclofenac sodium 75 mg 75 mg PO Q12H 03/11/24 03/11/24 History tablet,delayed release famotidine 40 mg tablet 40 mg PO DAILY 03/11/24 03/11/24 History metoprolol tartrate 25 mg tablet 25 mg PO Q12H 03/11/24 03/11/24 History Allergies Allergy/AdvReac Type Severity Reaction Status Date / Time No Known Allergies Allergy Verified 01/05/21 15:07 Vital Signs Vital Signs - 24 hr 03/10/24 16:00 03/10/24 16:06 03/10/24 16:20 Temperature 98.1 F Pulse Rate 133 H 141 H 120 H Respiratory Rate 24 H Blood Pressure 114/79 Pulse Oximetry 91 91 Oxygen Delivery Bag Valve Mask Mechanical Ventilation Fraction of Inspired Oxygen 100 03/10/24 17:08 03/10/24 17:15 03/10/24 17:27 Temperature Pulse Rate 136 H 135 H 133 H Respiratory Rate 16 16 Blood Pressure 111/95 H Pulse Oximetry 94 95 Oxygen Delivery Mechanical Ventilation Fraction of Inspired Oxygen 100 03/10/24 17:39 03/10/24 18:27 03/10/24 18:30 Temperature Pulse Rate 127 H 125 H Respiratory Rate 22 H Blood Pressure Pulse Oximetry 96 91 Oxygen Delivery Mechanical Ventilation Mechanical Ventilation Fraction of Inspired Oxygen 100 100 03/10/24 19:14 03/10/24 19:48 03/10/24 20:02 Temperature Pulse Rate 125 H 131 H 136 H Respiratory Rate 24 H 26 H 25 H Blood Pressure 107/96 H 117/100 H Pulse Oximetry 88 L Oxygen Delivery Fraction of Inspired Oxygen 03/10/24 20:25 03/10/24 20:39 03/10/24 20:42 Temperature Pulse Rate 130 H 111 H 108 H Respiratory Rate 23 H 28 H Blood Pressure 97/55 L Pulse Oximetry 92 93 Oxygen Delivery Mechanical Ventilation Fraction of Inspired Oxygen 100 03/10/24 20:47 03/10/24 21:05 03/10/24 21:05 Temperature Pulse Rate 108 H 112 H Respiratory Rate 25 H 26 H Blood Pressure Pulse Oximetry 95 Oxygen Delivery Mechanical Ventilation Fraction of Inspired Oxygen 100 100 03/10/24 21:15 03/10/24 21:16 03/10/24 21:16 Temperature 98.1 F Pulse Rate 112 H 129 H 112 H Respiratory Rate 22 H 33 H 33 H Blood Pressure 89/75 L Pulse Oximetry 95 Oxygen Delivery Fraction of Inspired Oxygen 03/10/24 21:30 03/10/24 21:35 03/10/24 21:45 Temperature Pulse Rate 117 H 112 H 111 H Respiratory Rate Blood Pressure 52/38 L 74/63 L 70/47 L Pulse Oximetry Oxygen Delivery Fraction of Inspired Oxygen 03/10/24 22:00 03/10/24 22:00 03/10/24 22:00 Temperature Pulse Rate 108 H 108 H Respiratory Rate 26 H 26 H Blood Pressure 77/68 L Pulse Oximetry 95 Oxygen Delivery Fraction of Inspired Oxygen 80 03/10/24 22:00 03/10/24 22:00 03/10/24 22:00 Temperature Pulse Rate 108 H 108 H 108 H Respiratory Rate 26 H Blood Pressure 77/68 L 77/68 L Pulse Oximetry Oxygen Delivery Fraction of Inspired Oxygen 03/10/24 22:00 03/10/24 23:00 03/10/24 23:00 Temperature Pulse Rate 108 H 94 94 Respiratory Rate 26 H 26 H Blood Pressure Pulse Oximetry Oxygen Delivery Fraction of Inspired Oxygen 03/10/24 23:00 03/10/24 23:00 03/10/24 23:00 Temperature Pulse Rate 94 94 94 Respiratory Rate 26 H Blood Pressure 86/74 L 86/74 L 86/74 L Pulse Oximetry 93 Oxygen Delivery Fraction of Inspired Oxygen 03/10/24 23:20 03/11/24 00:00 03/11/24 00:00 Temperature Pulse Rate 94 89 89 Respiratory Rate 26 H Blood Pressure 84/73 L Pulse Oximetry 90 Oxygen Delivery Mechanical Ventilation Fraction of Inspired Oxygen 80 03/11/24 00:00 03/11/24 00:00 03/11/24 00:00 Temperature Pulse Rate 89 89 89 Respiratory Rate 26 H Blood Pressure 84/73 L Pulse Oximetry Oxygen Delivery Fraction of Inspired Oxygen 03/11/24 00:00 03/11/24 00:00 03/11/24 00:00 Temperature 98.0 F Pulse Rate 89 89 Respiratory Rate 26 H 26 H Blood Pressure 84/73 L Pulse Oximetry 93 93 Oxygen Delivery Mechanical Ventilation Fraction of Inspired Oxygen 80 80 03/11/24 00:15 03/11/24 00:15 03/11/24 01:00 Temperature Pulse Rate 88 90 87 Respiratory Rate 26 H Blood Pressure 78/67 L 75/64 L Pulse Oximetry Oxygen Delivery Fraction of Inspired Oxygen 03/11/24 01:00 03/11/24 01:00 03/11/24 01:00 Temperature Pulse Rate 87 87 87 Respiratory Rate 26 H 26 H Blood Pressure 75/64 L Pulse Oximetry Oxygen Delivery Fraction of Inspired Oxygen 03/11/24 01:25 03/11/24 01:30 03/11/24 02:00 Temperature Pulse Rate 90 90 88 Respiratory Rate 26 H Blood Pressure 77/63 L 81/69 L Pulse Oximetry Oxygen Delivery Fraction of Inspired Oxygen 03/11/24 02:00 03/11/24 02:00 03/11/24 02:00 Temperature Pulse Rate 88 88 88 Respiratory Rate 26 H Blood Pressure 79/64 L 79/64 L Pulse Oximetry Oxygen Delivery Fraction of Inspired Oxygen 03/11/24 02:00 03/11/24 02:00 03/11/24 02:15 Temperature Pulse Rate 89 89 89 Respiratory Rate 26 H 26 H Blood Pressure 79/64 L Pulse Oximetry 96 Oxygen Delivery Fraction of Inspired Oxygen 03/11/24 02:15 03/11/24 02:15 03/11/24 02:30 Temperature Pulse Rate 89 90 91 Respiratory Rate 26 H Blood Pressure 81/70 L 76/66 L Pulse Oximetry Oxygen Delivery Fraction of Inspired Oxygen 03/11/24 02:30 03/11/24 02:46 03/11/24 02:46 Temperature Pulse Rate 91 90 90 Respiratory Rate 26 H 26 H Blood Pressure Pulse Oximetry 96 Oxygen Delivery Mechanical Ventilation Fraction of Inspired Oxygen 80 03/11/24 02:53 03/11/24 03:00 03/11/24 03:15 Temperature Pulse Rate 90 90 92 Respiratory Rate 26 H 26 H Blood Pressure 79/68 L Pulse Oximetry Oxygen Delivery Fraction of Inspired Oxygen 03/11/24 03:30 03/11/24 03:30 03/11/24 04:00 Temperature 98.9 F Pulse Rate 93 93 93 Respiratory Rate 26 H 26 H Blood Pressure 80/64 L 79/68 L Pulse Oximetry 97 Oxygen Delivery Fraction of Inspired Oxygen 03/11/24 04:00 03/11/24 04:00 03/11/24 04:00 Temperature Pulse Rate 93 92 Respiratory Rate Blood Pressure 79/68 L 79/68 L Pulse Oximetry Oxygen Delivery Fraction of Inspired Oxygen 80 03/11/24 04:00 03/11/24 04:00 03/11/24 04:15 Temperature Pulse Rate 93 93 93 Respiratory Rate 26 H 26 H Blood Pressure Pulse Oximetry 97 Oxygen Delivery Mechanical Ventilation Fraction of Inspired Oxygen 80 03/11/24 04:30 03/11/24 04:45 03/11/24 05:00 Temperature Pulse Rate 93 92 91 Respiratory Rate 26 H Blood Pressure 68/58 L 79/68 L Pulse Oximetry Oxygen Delivery Fraction of Inspired Oxygen 03/11/24 05:00 03/11/24 05:30 03/11/24 05:32 Temperature Pulse Rate 91 93 92 Respiratory Rate 26 H Blood Pressure 79/68 L Pulse Oximetry 100 Oxygen Delivery Mechanical Ventilation Fraction of Inspired Oxygen 80 03/11/24 06:00 03/11/24 06:00 03/11/24 06:00 Temperature Pulse Rate 89 91 91 Respiratory Rate Blood Pressure 78/67 L 78/67 L Pulse Oximetry Oxygen Delivery Fraction of Inspired Oxygen 03/11/24 06:00 03/11/24 06:00 03/11/24 07:58 Temperature Pulse Rate 91 91 90 Respiratory Rate 26 H 26 H 28 H Blood Pressure 78/67 L Pulse Oximetry 100 99 Oxygen Delivery Mechanical Ventilation Fraction of Inspired Oxygen 60 03/11/24 07:58 03/11/24 07:58 03/11/24 08:00 Temperature Pulse Rate 90 90 90 Respiratory Rate 28 H Blood Pressure 75/61 L Pulse Oximetry 99 Oxygen Delivery Mechanical Ventilation Fraction of Inspired Oxygen 60 03/11/24 08:00 03/11/24 08:00 03/11/24 08:00 Temperature Pulse Rate 90 90 90 Respiratory Rate 15 15 Blood Pressure 75/61 L Pulse Oximetry Oxygen Delivery Fraction of Inspired Oxygen 03/11/24 08:00 03/11/24 08:03 03/11/24 08:07 Temperature 98.7 F Pulse Rate 90 90 93 Respiratory Rate 26 H 23 H Blood Pressure 89/74 L 75/61 L Pulse Oximetry 99 Oxygen Delivery Fraction of Inspired Oxygen 03/11/24 08:08 03/11/24 08:10 Temperature Pulse Rate 90 90 Respiratory Rate 15 Blood Pressure 75/61 L Pulse Oximetry Oxygen Delivery Fraction of Inspired Oxygen Exam 2 Narrative: General: Intubated and sedated, in no acute distress HEENT:? Pupils are equal and reactive, sclerae is clear, ETT in place Neck:? Supple Respiratory:? Coarse breath sounds bilaterally, decreased at bases, adequate air entry, no wheeze Cardiac:? S1-S2 normal, regular rate and rhythm, ejection systolic murmur 05/21 Abdomen:? Soft, nontender, nondistended, hypoactive bowel so Extremities:? Cool extremities, dopplerable pedal pulse Neuro:? Patient is intubated, sedated, does not open his eyes or follow simple commands. Does withdraw to pain Skin:? Cyanotic Discoloration of the toes and feet Psych:? Unable to assess Results Labs 03/11/24 04:36 03/11/24 04:36 Labs: Short CBC 03/10/24 03/11/24 Range/Units 16:21 04:36 WBC 19.9 H 28.8 H (4.5-10.0) K/mm3 Hgb 16.1 14.4 (14.0-18.0) g/dL Hct 49.4 43.5 (42.0-52.0) % Plt Count 386 H 316 (150-375) k/mm3 BMP 03/10/24 03/10/24 03/11/24 16:21 16:36 04:36 Sodium 139 138 Potassium 4.5 5.0 Chloride 105 107 Carbon Dioxide 22 24 BUN 10 11 Creatinine 1.10 1.20 1.10 Glucose 219 H 181 H Calcium 8.9 7.8 L Cardiac Enzymes 03/10/24 03/10/24 03/11/24 Range/Units 16:21 22:37 04:36 Troponin I < 0.012 0.159 H* D 0.164 H* (0.000-0.034) ng/mL Liver Function 03/10/24 03/11/24 Range/Units 16:21 04:36 Total Bilirubin 0.5 0.4 (0.2-1.3) mg/dL AST 30 33 (17-59) U/L ALT 28 35 (6-50) U/L Alkaline Phosphatase 94 76 (38-126) U/L Albumin 4.3 3.8 (3.5-5.1) g/dL Quality VTE Prophylaxis VTE prophylaxis: pharmacologic ordered Hospitalist MIPS Advance Care Plan I have confirmed that the patient's Advanced Care Plan is present, code status is documented, or surrogate decision maker is listed in patient medical record.: Yes Medication Reconciliation I have utilized all available resources to obtain, update and review the patients current medications (includes all prescriptions, OTC, herbals, cannabis, and nutritional supplements).: Yes
[2024-03-11] MEDS: PIPERACILLIN/TAZ 4.5G/NS 100ML 4.5 GM/100 ML BAG IVPB ×3 (10:23→23:57)
--- NOTE | 2024-03-11 10:55 | PM.IMPN ---
Progress Note: A&P Assessment and Plan (1) Septic shock: Code(s): A41.9 - Sepsis, unspecified organism; R65.21 - Severe sepsis with septic shock Status: Acute Assessment and Plan: Will continue with on IV fluids and antibiotics. Monitor vital signs and urine Output. Critical care consult noted. (2) Aspiration pneumonia of both lungs: Code(s): J69.0 - Pneumonitis due to inhalation of food and vomit Status: Acute Assessment and Plan: Will continue with ventilation support. Continue with antibiotics. Repeat labs and x-ray in the (3) Acute hypoxic on chronic hypercapnic respiratory failure: Code(s): J96.01 - Acute respiratory failure with hypoxia; J96.12 - Chronic respiratory failure with hypercapnia Status: Acute Assessment and Plan: continue with ventilatory support and monitor labs (4) Hyperglycemia: Code(s): R73.9 - Hyperglycemia, unspecified Status: Acute Assessment and Plan: monitor closely. Sliding scale. (5) Tobacco dependence: Code(s): F17.200 - Nicotine dependence, unspecified, uncomplicated Status: Acute Assessment and Plan: Will provide counseling once patient is extubated. Plan The patient presented to the emergency department in respiratory distress which began approximately 1 hour prior to EMS arrival on scene as detailed in HPI. Labs, imaging, EKG, and all reports were personally reviewed. He was intubated on arrival to the ED and a subsequent ABG showed worsening pCO2 however that is improving with further vent setting changes. Now that his pCO2 was coming down he is a bit more agitated and was temporarily sedated in given rocuronium with consideration to start Nimbex depending on his course. He received cefepime, metronidazole, and vancomycin in the emergency department. Change to piperacillin/tazobactam and vancomycin for now, pending sputum culture. Continue scheduled bronchodilators, and hydrocortisone 50 mg q.6 hours. Check Legionella and pneumococcal antigens as well as mycoplasma IgM. Over the course of several hours in the emergency department his blood pressures began to decline and a femoral central line was inserted by the ED physician. Currently he is on norepinephrine and vasopressin to maintain his MAP of at least 65 and a systolic blood pressure of at least 95 for adequate end-organ perfusion. His random glucose was over 200 thus will initiate sliding scale insulin, Accu-Cheks, and hypoglycemic protocol. Check hemoglobin A1c. Left adrenal gland was enlarged on CT scan and radiologist suggests follow-up imaging. She also suggest follow-up brain CT given asymmetry of posterior cranial fossa. The patient's home medications will be reviewed and resumed as appropriate. He remains a full code at this time. Subjective Date/time seen: 03/11/24 10:55 Interval history: Patient was seen during the morning rounds today. Patient is intubated and sedated. No new overnight complaints. Review of Systems Review of Systems: Unable to be obtained given clinical condition. Exam Narrative: Narrative: No acute distress , intubated and se dated. Const: General: no acute distress HENMT: Face/Nose/Sinus: n o epistaxis Neck: Thyroid: thyroid n ormal Resp: Auscultation: dimi nished lung sounds Cardio: Rate: regular rate Rhythm: regular rhythm Heart soun ds: Murmur heart s ound present Othe r: Murmur consis tent with severe a ortic stenosis GI: GI Palp: Yes Soft to palpation and N o Tenderness to pa lpation present (G I) Skin: Rashes: no rashes noted Neuro: Other: Unable to assess due to ariel ng intubated and s edated Extrem: General: normal to inspection Psych: Other: Unable to assess due to ariel ng intubated Objective Data Vital Signs Vital Signs: Vital Signs - 24 hr 03/10/24 16:00 03/10/24 16:06 03/10/24 16:20 Temperature 36.7 C Pulse Rate 133 H 141 H 120 H Respiratory Rate 24 H Blood Pressure 114/79 Pulse Oximetry 91 91 Oxygen Delivery Bag Valve Mask Mechanical Ventilation Fraction of Inspired Oxygen 100 03/10/24 17:08 03/10/24 17:15 03/10/24 17:27 Temperature Pulse Rate 136 H 135 H 133 H Respiratory Rate 16 16 Blood Pressure 111/95 H Pulse Oximetry 94 95 Oxygen Delivery Mechanical Ventilation Fraction of Inspired Oxygen 100 03/10/24 17:39 03/10/24 18:27 03/10/24 18:30 Temperature Pulse Rate 127 H 125 H Respiratory Rate 22 H Blood Pressure Pulse Oximetry 96 91 Oxygen Delivery Mechanical Ventilation Mechanical Ventilation Fraction of Inspired Oxygen 100 100 03/10/24 19:14 03/10/24 19:48 03/10/24 20:02 Temperature Pulse Rate 125 H 131 H 136 H Respiratory Rate 24 H 26 H 25 H Blood Pressure 107/96 H 117/100 H Pulse Oximetry 88 L Oxygen Delivery Fraction of Inspired Oxygen 03/10/24 20:25 03/10/24 20:39 03/10/24 20:42 Temperature Pulse Rate 130 H 111 H 108 H Respiratory Rate 23 H 28 H Blood Pressure 97/55 L Pulse Oximetry 92 93 Oxygen Delivery Mechanical Ventilation Fraction of Inspired Oxygen 100 03/10/24 20:47 03/10/24 21:05 03/10/24 21:05 Temperature Pulse Rate 108 H 112 H Respiratory Rate 25 H 26 H Blood Pressure Pulse Oximetry 95 Oxygen Delivery Mechanical Ventilation Fraction of Inspired Oxygen 100 100 03/10/24 21:15 03/10/24 21:16 03/10/24 21:16 Temperature 36.7 C Pulse Rate 112 H 129 H 112 H Respiratory Rate 22 H 33 H 33 H Blood Pressure 89/75 L Pulse Oximetry 95 Oxygen Delivery Fraction of Inspired Oxygen 03/10/24 21:30 03/10/24 21:35 03/10/24 21:45 Temperature Pulse Rate 117 H 112 H 111 H Respiratory Rate Blood Pressure 52/38 L 74/63 L 70/47 L Pulse Oximetry Oxygen Delivery Fraction of Inspired Oxygen 03/10/24 22:00 03/10/24 22:00 03/10/24 22:00 Temperature Pulse Rate 108 H 108 H Respiratory Rate 26 H 26 H Blood Pressure 77/68 L Pulse Oximetry 95 Oxygen Delivery Fraction of Inspired Oxygen 80 03/10/24 22:00 03/10/24 22:00 03/10/24 22:00 Temperature Pulse Rate 108 H 108 H 108 H Respiratory Rate 26 H Blood Pressure 77/68 L 77/68 L Pulse Oximetry Oxygen Delivery Fraction of Inspired Oxygen 03/10/24 22:00 03/10/24 23:00 03/10/24 23:00 Temperature Pulse Rate 108 H 94 94 Respiratory Rate 26 H 26 H Blood Pressure Pulse Oximetry Oxygen Delivery Fraction of Inspired Oxygen 03/10/24 23:00 03/10/24 23:00 03/10/24 23:00 Temperature Pulse Rate 94 94 94 Respiratory Rate 26 H Blood Pressure 86/74 L 86/74 L 86/74 L Pulse Oximetry 93 Oxygen Delivery Fraction of Inspired Oxygen 03/10/24 23:20 03/11/24 00:00 03/11/24 00:00 Temperature Pulse Rate 94 89 89 Respiratory Rate 26 H Blood Pressure 84/73 L Pulse Oximetry 90 Oxygen Delivery Mechanical Ventilation Fraction of Inspired Oxygen 80 03/11/24 00:00 03/11/24 00:00 03/11/24 00:00 Temperature Pulse Rate 89 89 89 Respiratory Rate 26 H Blood Pressure 84/73 L Pulse Oximetry Oxygen Delivery Fraction of Inspired Oxygen 03/11/24 00:00 03/11/24 00:00 03/11/24 00:00 Temperature 36.7 C Pulse Rate 89 89 Respiratory Rate 26 H 26 H Blood Pressure 84/73 L Pulse Oximetry 93 93 Oxygen Delivery Mechanical Ventilation Fraction of Inspired Oxygen 80 80 03/11/24 00:15 03/11/24 00:15 03/11/24 01:00 Temperature Pulse Rate 88 90 87 Respiratory Rate 26 H Blood Pressure 78/67 L 75/64 L Pulse Oximetry Oxygen Delivery Fraction of Inspired Oxygen 03/11/24 01:00 03/11/24 01:00 03/11/24 01:00 Temperature Pulse Rate 87 87 87 Respiratory Rate 26 H 26 H Blood Pressure 75/64 L Pulse Oximetry Oxygen Delivery Fraction of Inspired Oxygen 03/11/24 01:25 03/11/24 01:30 03/11/24 02:00 Temperature Pulse Rate 90 90 88 Respiratory Rate 26 H Blood Pressure 77/63 L 81/69 L Pulse Oximetry Oxygen Delivery Fraction of Inspired Oxygen 03/11/24 02:00 03/11/24 02:00 03/11/24 02:00 Temperature Pulse Rate 88 88 88 Respiratory Rate 26 H Blood Pressure 79/64 L 79/64 L Pulse Oximetry Oxygen Delivery Fraction of Inspired Oxygen 03/11/24 02:00 03/11/24 02:00 03/11/24 02:15 Temperature Pulse Rate 89 89 89 Respiratory Rate 26 H 26 H Blood Pressure 79/64 L Pulse Oximetry 96 Oxygen Delivery Fraction of Inspired Oxygen 03/11/24 02:15 03/11/24 02:15 03/11/24 02:30 Temperature Pulse Rate 89 90 91 Respiratory Rate 26 H Blood Pressure 81/70 L 76/66 L Pulse Oximetry Oxygen Delivery Fraction of Inspired Oxygen 03/11/24 02:30 03/11/24 02:46 03/11/24 02:46 Temperature Pulse Rate 91 90 90 Respiratory Rate 26 H 26 H Blood Pressure Pulse Oximetry 96 Oxygen Delivery Mechanical Ventilation Fraction of Inspired Oxygen 80 03/11/24 02:53 03/11/24 03:00 03/11/24 03:15 Temperature Pulse Rate 90 90 92 Respiratory Rate 26 H 26 H Blood Pressure 79/68 L Pulse Oximetry Oxygen Delivery Fraction of Inspired Oxygen 03/11/24 03:30 03/11/24 03:30 03/11/24 04:00 Temperature 37.2 C Pulse Rate 93 93 93 Respiratory Rate 26 H 26 H Blood Pressure 80/64 L 79/68 L Pulse Oximetry 97 Oxygen Delivery Fraction of Inspired Oxygen 03/11/24 04:00 03/11/24 04:00 03/11/24 04:00 Temperature Pulse Rate 93 92 Respiratory Rate Blood Pressure 79/68 L 79/68 L Pulse Oximetry Oxygen Delivery Fraction of Inspired Oxygen 80 03/11/24 04:00 03/11/24 04:00 03/11/24 04:15 Temperature Pulse Rate 93 93 93 Respiratory Rate 26 H 26 H Blood Pressure Pulse Oximetry 97 Oxygen Delivery Mechanical Ventilation Fraction of Inspired Oxygen 80 03/11/24 04:30 03/11/24 04:45 03/11/24 05:00 Temperature Pulse Rate 93 92 91 Respiratory Rate 26 H Blood Pressure 68/58 L 79/68 L Pulse Oximetry Oxygen Delivery Fraction of Inspired Oxygen 03/11/24 05:00 03/11/24 05:30 03/11/24 05:32 Temperature Pulse Rate 91 93 92 Respiratory Rate 26 H Blood Pressure 79/68 L Pulse Oximetry 100 Oxygen Delivery Mechanical Ventilation Fraction of Inspired Oxygen 80 03/11/24 06:00 03/11/24 06:00 03/11/24 06:00 Temperature Pulse Rate 89 91 91 Respiratory Rate Blood Pressure 78/67 L 78/67 L Pulse Oximetry Oxygen Delivery Fraction of Inspired Oxygen 03/11/24 06:00 03/11/24 06:00 03/11/24 07:58 Temperature Pulse Rate 91 91 90 Respiratory Rate 26 H 26 H 28 H Blood Pressure 78/67 L Pulse Oximetry 100 99 Oxygen Delivery Mechanical Ventilation Fraction of Inspired Oxygen 60 03/11/24 07:58 03/11/24 07:58 03/11/24 08:00 Temperature Pulse Rate 90 90 90 Respiratory Rate 28 H Blood Pressure 75/61 L Pulse Oximetry 99 Oxygen Delivery Mechanical Ventilation Fraction of Inspired Oxygen 60 03/11/24 08:00 03/11/24 08:00 03/11/24 08:00 Temperature Pulse Rate 90 90 90 Respiratory Rate 15 15 Blood Pressure 75/61 L Pulse Oximetry Oxygen Delivery Fraction of Inspired Oxygen 03/11/24 08:00 03/11/24 08:00 03/11/24 08:00 Temperature 37.1 C Pulse Rate 90 Respiratory Rate 26 H Blood Pressure 89/74 L Pulse Oximetry 99 99 Oxygen Delivery Mechanical Ventilation Fraction of Inspired Oxygen 60 60 03/11/24 08:00 03/11/24 08:03 03/11/24 08:07 Temperature Pulse Rate 92 90 93 Respiratory Rate 23 H Blood Pressure 75/61 L Pulse Oximetry Oxygen Delivery Fraction of Inspired Oxygen 03/11/24 08:08 03/11/24 08:10 Temperature Pulse Rate 90 90 Respiratory Rate 15 Blood Pressure 75/61 L Pulse Oximetry Oxygen Delivery Fraction of Inspired Oxygen Intake/Output Intake/Output: Intake & Output 03/08/24 03/09/24 03/10/24 03/11/24 23:59 23:59 23:59 23:59 Intake Total 1838.5 702.0 Output Total 1030 Balance 1838.5 -328.0 Meds/Results Medications: Active Medications Generic Name Dose Route Start Last Admin Trade Name Freq PRN Reason Stop Dose Admin Acetaminophen 650 mg 03/10/24 21:32 Acetaminophen 650 Mg Suppository RECTAL Q6H PRN Mild Pain (1-3) or Fever Albuterol/Ipratropium 3 ml 03/11/24 02:00 03/11/24 07:57 Ipratropium 0.5 Mg/Albuterol Sulfate 2.5 Mg Ampul.Neb 3 Ml INHALATION 3 ml Q6HRT DANAE Administration Aspirin 81 mg 03/11/24 08:00 03/11/24 08:24 Aspirin 81 Mg Chewable Tablet PO 81 mg DAILY@0800 DANAE Administration Dextrose 12.5 gm 03/10/24 21:32 Dextrose 50% 25 Gm/50 Ml Syringe IV PUSH PRN PRN Hypoglycemia Protocol Enoxaparin Sodium 40 mg 03/11/24 09:00 03/11/24 08:24 Enoxaparin 40 Mg/0.4 Ml Syringe SUB-Q 40 mg DAILY DANAE Administration Glucagon 1 mg 03/10/24 21:32 Glucagon For Inj 1 Mg Vial IM PRN PRN Hypoglycemia Protocol Glucose 15 gm 03/10/24 21:32 Glucose Oral Gel 15 Gm Of Glucse In 37.5 Gm Tube PO PRN PRN Hypoglycemia Protocol Hydrocortisone Sodium Succinate 50 mg 03/10/24 22:20 03/11/24 05:03 Hydrocortisone Sodium Succinate 100 Mg/2 Ml Vial IV PUSH 50 mg Q6HR DANAE Administration Fentanyl Citrate 2,500 mcg in 250 mls @ 10 mls/hr 03/10/24 16:12 03/11/24 08:07 Fentanyl 2,500 Mcg/Ns 250 Ml IV CONT 03/11/24 17:11 100 mcg/hr .Q25H STA 10 mls/hr Titration Protocol 100 MCG/HR Vancomycin HCl 1,500 mg in 500 mls @ 250 mls/hr 03/11/24 12:00 Vancomycin 1,500 Mg/Ns 500 Ml IVPB Q18H DANAE Vasopressin 100 units/ 100 mls @ 1.2 mls/hr 03/10/24 19:40 03/11/24 08:00 Dextrose IV CONT 0.02 units/min .Q72H DANAE 1.2 mls/hr Infusion 0.02 UNITS/MIN Midazolam HCl 100 mg in 100 mls @ 2 mls/hr 03/10/24 19:55 03/11/24 08:08 Versed 100 Mg/Ns 100 Ml IV CONT 2 mg/hr .Q50H DANAE 2 mls/hr Infusion 2 MG/HR Propofol 100 mls @ 3.174 mls/hr 03/10/24 21:35 Diprivan IV CONT .[id number] DANAE 5 MCG/KG/MIN Dextrose 1,000 mls @ 100 mls/hr 03/10/24 21:32 Dextrose 5% 1,000 Ml IVPB PRN PRN Hypoglycemia Protocol Norepinephrine Bitartrate 8 mg in 250 mls @ 43.125 mls/hr 03/11/24 01:30 03/11/24 08:10 Levophed 8 Mg/D5w 250 Ml IV CONT 23 mcg/min .Q5H48M DANAE 43.13 mls/hr Titration Protocol 23 MCG/MIN Piperacillin Sod/Tazobactam Sod 4.5 gm in 100 mls @ 200 mls/hr 03/11/24 11:00 Zosyn 4.5 Gm/Ns 100 Ml IVPB Q6HR DANAE Azithromycin 500 mg in 250 mls @ 250 mls/hr 03/11/24 09:00 Zithromax IVPB Q24H [facility] Insulin Aspart 3 - 6 units 03/11/24 00:00 03/11/24 05:27 Insulin Aspart (*Bkc) 100 Units/Ml SUB-Q 3 units Q6HR DANAE Administration Protocol Pantoprazole Sodium 40 mg 03/11/24 09:00 03/11/24 08:24 Pantoprazole Sodium Iv 40 Mg Vial IV PUSH 40 mg QAM DANAE Administration Perflutren Lipid Microsphere 0 ml 03/10/24 21:32 Perflutren Lipid Microspheres 1.5 Ml Vial Diluted To 10 Ml Total Volume IV PUSH 03/13/24 21:32 ONCE PRN adequate visualization Protocol Radiology Results: ITS Impressions Head CT 03/10/24 17:30 Impression: No acute intracranial hemorrhage. Asymmetry of the posterior cranial fossa, possibly related to patient positioning within the gantry with asymmetric visualization of the cisterna magna to the right of midline. Short-term follow-up is recommended, if the patient is clinically able Chest CTA 03/10/24 18:29 IMPRESSION: No pulmonary embolus. No aortic dissection. Likely bilateral aspiration pneumonia, as detailed above. Severe panlobular emphysematous disease. Left adrenal enlargement for which follow-up examination may be performed when the patient is clinically able. Chest X-Ray 03/11/24 06:47 IMPRESSION: 1. Stable airspace opacities in the mid and lower lung zones, consistent with pneumonia. 2. Emphysema. Labs Labs: Laboratory Results - last 24 hr 03/10/24 03/10/24 03/10/24 16:20 16:21 16:36 WBC 19.9 H RBC 5.33 Hgb 16.1 Hct 49.4 MCV 92.7 MCH 30.2 MCHC 32.6 RDW 14.3 Plt Count 386 H MPV 10.2 Immature Gran % (Auto) 1.6 H Neut % (Auto) 50.0 Lymph % (Auto) 39.7 [place]vin % (Auto) 5.8 Eos % (Auto) 2.1 Baso % (Auto) 0.8 Lymph # (Auto) 7.91 H Garvin # (Auto) 1.2 H Eos # (Auto) 0.4 H Baso # (Auto) 0.2 H Abs Immat Gran (auto) 0.32 H Absolute Neuts (auto) 10.0 H Absolute Nucleated RBC 0.000 Total Counted Neutrophils % (Manual) Band Neutrophils % Lymphocytes % (Manual) Monocytes % (Manual) Nucleated RBC % 0.0 Abs Neuts (Manual) Abs Lymphs (Manual) Abs Monocytes (Manual) Atypical Lymphocytes Present Platelet Estimate Increased Large Platelets Present Giant Platelets Present Anisocytosis 1+ [place] Cells Schistocytes None seen Puncture Site Right radial ABG pH 7.053 L* ABG pCO2 92.7 H* ABG pO2 70.9 L ABG PO2/FiO2 Ratio 0.71 ABG HCO3 25.2 ABG O2 Saturation 85.1 L* ABG O2 Content 19.5 ABG Base Excess -8.0 A-a Gradient 549.4 Oxyhemoglobin 84.4 L* Carboxyhemoglobin 3.4 H Methemoglobin 0.4 Reduced Hemoglobin 11.8 H Total Hemoglobin 16.4 O2 Delivery Device Ventilator O2 Liters/Min Not Reportable Minute Volume Not Reportable Vent Rate 16 Vent Mode Cmv FiO2 100 Tidal Volume 400 PEEP 5 Peak Inspir Pressure Not Reportable Pressure Support Not Reportable Sodium 139 Potassium 4.5 Chloride 105 Carbon Dioxide 22 Anion Gap 12 BUN 10 Creatinine 1.10 1.20 Estim Creat Clear Calc 78 Not Reportable Estimated GFR > 60 > 60 Glucose 219 H POC Capillary Glucose Hemoglobin A1c 5.6 Lactic Acid Calcium 8.9 Phosphorus Magnesium Total Bilirubin 0.5 AST 30 ALT 28 Alkaline Phosphatase 94 Troponin I < 0.012 Total Protein 7.0 Albumin 4.3 Nasal MRSA (PCR) Influenza A (RT-PCR) Negative Influenza B (RT-PCR) Negative RSV (RT-PCR) Negative SARS-CoV-2 RNA (RT-PCR) Negative 03/10/24 03/10/24 03/10/24 16:55 17:07 18:43 WBC RBC Hgb Hct MCV MCH MCHC RDW Plt Count MPV Immature Gran % (Auto) Neut % (Auto) Lymph % (Auto) [place] % (Auto) Eos % (Auto) Baso % (Auto) Lymph # (Auto) [place]vin # (Auto) Eos # (Auto) Baso # (Auto) Abs Immat Gran (auto) Absolute Neuts (auto) Absolute Nucleated RBC Total Counted Neutrophils % (Manual) Band Neutrophils % Lymphocytes % (Manual) Monocytes % (Manual) Nucleated RBC % Abs Neuts (Manual) Abs Lymphs (Manual) Abs Monocytes (Manual) Atypical Lymphocytes Platelet Estimate Large Platelets Giant Platelets Anisocytosis Ying Cells Schistocytes Puncture Site ABG pH ABG pCO2 ABG pO2 ABG PO2/FiO2 Ratio ABG HCO3 ABG O2 Saturation ABG O2 Content ABG Base Excess A-a Gradient Oxyhemoglobin Carboxyhemoglobin Methemoglobin Reduced Hemoglobin Total Hemoglobin O2 Delivery Device O2 Liters/Min Minute Volume Vent Rate Vent Mode FiO2 Tidal Volume PEEP Peak Inspir Pressure Pressure Support Sodium Potassium Chloride Carbon Dioxide Anion Gap BUN Creatinine Estim Creat Clear Calc Estimated GFR Glucose POC Capillary Glucose 226 H Hemoglobin A1c Lactic Acid 0.7 Calcium Phosphorus Magnesium Total Bilirubin AST ALT Alkaline Phosphatase Troponin I Total Protein Albumin Nasal MRSA (PCR) Not detected Influenza A (RT-PCR) Influenza B (RT-PCR) RSV (RT-PCR) SARS-CoV-2 RNA (RT-PCR) 03/10/24 03/10/24 03/10/24 19:08 21:26 22:37 WBC RBC Hgb Hct MCV MCH MCHC RDW Plt Count MPV Immature Gran % (Auto) Neut % (Auto) Lymph % (Auto) [place] % (Auto) Eos % (Auto) Baso % (Auto) Lymph # (Auto) [place]vin # (Auto) Eos # (Auto) Baso # (Auto) Abs Immat Gran (auto) Absolute Neuts (auto) Absolute Nucleated RBC Total Counted Neutrophils % (Manual) Band Neutrophils % Lymphocytes % (Manual) Monocytes % (Manual) Nucleated RBC % Abs Neuts (Manual) Abs Lymphs (Manual) Abs Monocytes (Manual) Atypical Lymphocytes Platelet Estimate Large Platelets Giant Platelets Anisocytosis Ying Cells Schistocytes Puncture Site Right radial Left radial ABG pH 6.899 L* 7.057 L* ABG pCO2 140.6 H* 70.9 H* ABG pO2 76.2 L 106.8 H ABG PO2/FiO2 Ratio 0.76 1.07 ABG HCO3 26.9 H 19.5 L ABG O2 Saturation 81.3 L* 95.2 ABG O2 Content 20.2 19.8 ABG Base Excess -10.6 -12.1 A-a Gradient 496.2 535.3 Oxyhemoglobin 85.3 L* 94.8 Carboxyhemoglobin 2.9 H 1.6 Methemoglobin 0.4 0.2 Reduced Hemoglobin 11.4 H 3.4 Total Hemoglobin 16.8 14.8 O2 Delivery Device Ventilator Ventilator O2 Liters/Min Not Reportable Not Reportable Minute Volume Not Reportable Not Reportable Vent Rate 16 26 Vent Mode Cmv Cmv FiO2 100 100 Tidal Volume 400 500 PEEP 5 5 Peak Inspir Pressure Not Reportable Not Reportable Pressure Support Not Reportable Not Reportable Sodium Potassium Chloride Carbon Dioxide Anion Gap BUN Creatinine Estim Creat Clear Calc Estimated GFR Glucose POC Capillary Glucose Hemoglobin A1c Lactic Acid Calcium Phosphorus Magnesium Total Bilirubin AST ALT Alkaline Phosphatase Troponin I 0.159 H* D Total Protein Albumin Nasal MRSA (PCR) Influenza A (RT-PCR) Influenza B (RT-PCR) RSV (RT-PCR) SARS-CoV-2 RNA (RT-PCR) 03/10/24 03/10/24 03/11/24 23:04 23:56 04:36 WBC 28.8 H RBC 4.81 Hgb 14.4 Hct 43.5 MCV 90.4 MCH 29.9 MCHC 33.1 RDW 14.2 Plt Count 316 MPV 9.5 Immature Gran % (Auto) Not Reportable Neut % (Auto) Not Reportable Lymph % (Auto) Not Reportable [place] % (Auto) Not Reportable Eos % (Auto) Not Reportable Baso % (Auto) Not Reportable Lymph # (Auto) Not Reportable [place] # (Auto) Not Reportable Eos # (Auto) Not Reportable Baso # (Auto) Not Reportable Abs Immat Gran (auto) Not Reportable Absolute Neuts (auto) Not Reportable Absolute Nucleated RBC Not Reportable Total Counted 100 Neutrophils % (Manual) 85 H Band Neutrophils % 1 Lymphocytes % (Manual) 9.0 L Monocytes % (Manual) 5 Nucleated RBC % Not Reportable Abs Neuts (Manual) 24.76 H Abs Lymphs (Manual) 2.59 Abs Monocytes (Manual) 1.44 H Atypical Lymphocytes Platelet Estimate Adequate Large Platelets Giant Platelets Anisocytosis 1+ [place] Cells 1+ Schistocytes None seen Puncture Site ABG pH ABG pCO2 ABG pO2 ABG PO2/FiO2 Ratio ABG HCO3 ABG O2 Saturation ABG O2 Content ABG Base Excess A-a Gradient Oxyhemoglobin Carboxyhemoglobin Methemoglobin Reduced Hemoglobin Total Hemoglobin O2 Delivery Device O2 Liters/Min Minute Volume Vent Rate Vent Mode FiO2 Tidal Volume PEEP Peak Inspir Pressure Pressure Support Sodium 138 Potassium 5.0 Chloride 107 Carbon Dioxide 24 Anion Gap 7 BUN 11 Creatinine 1.10 Estim Creat Clear Calc 75 Estimated GFR > 60 Glucose 181 H POC Capillary Glucose 183 H Hemoglobin A1c Lactic Acid Calcium 7.8 L Phosphorus 4.4 Magnesium 1.8 Total Bilirubin 0.4 AST 33 ALT 35 Alkaline Phosphatase 76 Troponin I 0.164 H* Total Protein 7.0 Albumin 3.8 Nasal MRSA (PCR) Not detected Influenza A (RT-PCR) Influenza B (RT-PCR) RSV (RT-PCR) SARS-CoV-2 RNA (RT-PCR) 03/11/24 03/11/24 05:19 05:23 WBC RBC Hgb Hct MCV MCH MCHC RDW Plt Count MPV Immature Gran % (Auto) Neut % (Auto) Lymph % (Auto) [place] % (Auto) Eos % (Auto) Baso % (Auto) Lymph # (Auto) [place] # (Auto) Eos # (Auto) Baso # (Auto) Abs Immat Gran (auto) Absolute Neuts (auto) Absolute Nucleated RBC Total Counted Neutrophils % (Manual) Band Neutrophils % Lymphocytes % (Manual) Monocytes % (Manual) Nucleated RBC % Abs Neuts (Manual) Abs Lymphs (Manual) Abs Monocytes (Manual) Atypical Lymphocytes Platelet Estimate Large Platelets Giant Platelets Anisocytosis [place] Cells Schistocytes Puncture Site Left radial ABG pH 7.208 L* ABG pCO2 55.1 H ABG pO2 138.0 H ABG PO2/FiO2 Ratio 1.73 ABG HCO3 21.4 L ABG O2 Saturation 98.2 ABG O2 Content 20.0 ABG Base Excess -7.0 A-a Gradient 374.6 Oxyhemoglobin 98.2 Carboxyhemoglobin 0.3 Methemoglobin 0.2 Reduced Hemoglobin 1.3 Total Hemoglobin 14.3 O2 Delivery Device Ventilator O2 Liters/Min Not Reportable Minute Volume Not Reportable Vent Rate 26 Vent Mode Cmv FiO2 80 Tidal Volume 500 PEEP 5 Peak Inspir Pressure Not Reportable Pressure Support Not Reportable Sodium Potassium Chloride Carbon Dioxide Anion Gap BUN Creatinine Estim Creat Clear Calc Estimated GFR Glucose POC Capillary Glucose 206 H Hemoglobin A1c Lactic Acid Calcium Phosphorus Magnesium Total Bilirubin AST ALT Alkaline Phosphatase Troponin I Total Protein Albumin Nasal MRSA (PCR) Influenza A (RT-PCR) Influenza B (RT-PCR) RSV (RT-PCR) SARS-CoV-2 RNA (RT-PCR) Quality VTE Prophylaxis VTE prophylaxis: pharmacologic ordered
[2024-03-11] MEDS: AZITHROMYCIN 500 MG/NS 250 ML 500 MG/250 ML BAG 250 MG IVPB (11:08)
[2024-03-11] MEDS: VANCOMYCIN 1,500 MG/NS 500 ML 1,500 MG/500 ML BAG 250 MG IVPB (11:57)
[2024-03-11 12:15] LABS: Glucose Point of Care 237 mg/dl (65-105)
[2024-03-11 12:31] LABS: Lactic Acid Reflex 4.1 mmol/L (0.7-2.0)
[2024-03-11] MEDS: ALBUMIN HUMAN 25% 25 GM/100 ML 100 ML IVPB ×3 (13:21→23:55)
[2024-03-11] MEDS: FENTANYL 2,500MCG/NS250ML(*CRX 2,500 MCG/250 ML BAG 10 MCG IV CONT (13:48)
[2024-03-11] MEDS: MIDAZOLAM 100MG/NS 100ML(*CRX) 100 MG/100 ML BAG IV CONT (13:50)
[2024-03-11 15:17] LABS: Reflex Lactic Acid Yes or No Add Lactic
--- NOTE | 2024-03-11 17:30 | P.PNIM_ITS ---
Progress Note: A&P Assessment and Plan (1) Ischemic stroke: Code(s): I63.9 - Cerebral infarction, unspecified Status: Acute Assessment and Plan: Called [facility] patient transfer line at [phone] and talked to patient transfer home care coordinator. She took patient information and has started the transfer process. She will reach out to stroke team and [facility] team to see if patient needs immediate transfer or can be managed at [facility] for now. 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 Subjective Date/time seen: 03/11/24 17:30 Objective Data Vital Signs Vital Signs: Vital Signs - 24 hr 03/10/24 17:39 03/10/24 18:27 03/10/24 18:30 Temperature Pulse Rate 127 H 125 H Respiratory Rate 22 H Blood Pressure Pulse Oximetry 96 91 Oxygen Delivery Mechanical Ventilation Mechanical Ventilation Fraction of Inspired Oxygen 100 100 03/10/24 19:14 03/10/24 19:48 03/10/24 20:02 Temperature Pulse Rate 125 H 131 H 136 H Respiratory Rate 24 H 26 H 25 H Blood Pressure 107/96 H 117/100 H Pulse Oximetry 88 L Oxygen Delivery Fraction of Inspired Oxygen 03/10/24 20:25 03/10/24 20:39 03/10/24 20:42 Temperature Pulse Rate 130 H 111 H 108 H Respiratory Rate 23 H 28 H Blood Pressure 97/55 L Pulse Oximetry 92 93 Oxygen Delivery Mechanical Ventilation Fraction of Inspired Oxygen 100 03/10/24 20:47 03/10/24 21:05 03/10/24 21:05 Temperature Pulse Rate 108 H 112 H Respiratory Rate 25 H 26 H Blood Pressure Pulse Oximetry 95 Oxygen Delivery Mechanical Ventilation Fraction of Inspired Oxygen 100 100 03/10/24 21:15 03/10/24 21:16 03/10/24 21:16 Temperature 36.7 C Pulse Rate 112 H 129 H 112 H Respiratory Rate 22 H 33 H 33 H Blood Pressure 89/75 L Pulse Oximetry 95 Oxygen Delivery Fraction of Inspired Oxygen 03/10/24 21:30 03/10/24 21:35 03/10/24 21:45 Temperature Pulse Rate 117 H 112 H 111 H Respiratory Rate Blood Pressure 52/38 L 74/63 L 70/47 L Pulse Oximetry Oxygen Delivery Fraction of Inspired Oxygen 03/10/24 22:00 03/10/24 22:00 03/10/24 22:00 Temperature Pulse Rate 108 H 108 H Respiratory Rate 26 H 26 H Blood Pressure 77/68 L Pulse Oximetry 95 Oxygen Delivery Fraction of Inspired Oxygen 80 03/10/24 22:00 03/10/24 22:00 03/10/24 22:00 Temperature Pulse Rate 108 H 108 H 108 H Respiratory Rate 26 H Blood Pressure 77/68 L 77/68 L Pulse Oximetry Oxygen Delivery Fraction of Inspired Oxygen 03/10/24 22:00 03/10/24 23:00 03/10/24 23:00 Temperature Pulse Rate 108 H 94 94 Respiratory Rate 26 H 26 H Blood Pressure Pulse Oximetry Oxygen Delivery Fraction of Inspired Oxygen 03/10/24 23:00 03/10/24 23:00 03/10/24 23:00 Temperature Pulse Rate 94 94 94 Respiratory Rate 26 H Blood Pressure 86/74 L 86/74 L 86/74 L Pulse Oximetry 93 Oxygen Delivery Fraction of Inspired Oxygen 03/10/24 23:20 03/11/24 00:00 03/11/24 00:00 Temperature Pulse Rate 94 89 89 Respiratory Rate 26 H Blood Pressure 84/73 L Pulse Oximetry 90 Oxygen Delivery Mechanical Ventilation Fraction of Inspired Oxygen 80 03/11/24 00:00 03/11/24 00:00 03/11/24 00:00 Temperature Pulse Rate 89 89 89 Respiratory Rate 26 H Blood Pressure 84/73 L Pulse Oximetry Oxygen Delivery Fraction of Inspired Oxygen 03/11/24 00:00 03/11/24 00:00 03/11/24 00:00 Temperature 36.7 C Pulse Rate 89 89 Respiratory Rate 26 H 26 H Blood Pressure 84/73 L Pulse Oximetry 93 93 Oxygen Delivery Mechanical Ventilation Fraction of Inspired Oxygen 80 80 03/11/24 00:15 03/11/24 00:15 03/11/24 01:00 Temperature Pulse Rate 88 90 87 Respiratory Rate 26 H Blood Pressure 78/67 L 75/64 L Pulse Oximetry Oxygen Delivery Fraction of Inspired Oxygen 03/11/24 01:00 03/11/24 01:00 03/11/24 01:00 Temperature Pulse Rate 87 87 87 Respiratory Rate 26 H 26 H Blood Pressure 75/64 L Pulse Oximetry Oxygen Delivery Fraction of Inspired Oxygen 03/11/24 01:25 03/11/24 01:30 03/11/24 02:00 Temperature Pulse Rate 90 90 88 Respiratory Rate 26 H Blood Pressure 77/63 L 81/69 L Pulse Oximetry Oxygen Delivery Fraction of Inspired Oxygen 03/11/24 02:00 03/11/24 02:00 03/11/24 02:00 Temperature Pulse Rate 88 88 88 Respiratory Rate 26 H Blood Pressure 79/64 L 79/64 L Pulse Oximetry Oxygen Delivery Fraction of Inspired Oxygen 03/11/24 02:00 03/11/24 02:00 03/11/24 02:15 Temperature Pulse Rate 89 89 89 Respiratory Rate 26 H 26 H Blood Pressure 79/64 L Pulse Oximetry 96 Oxygen Delivery Fraction of Inspired Oxygen 03/11/24 02:15 03/11/24 02:15 03/11/24 02:30 Temperature Pulse Rate 89 90 91 Respiratory Rate 26 H Blood Pressure 81/70 L 76/66 L Pulse Oximetry Oxygen Delivery Fraction of Inspired Oxygen 03/11/24 02:30 03/11/24 02:46 03/11/24 02:46 Temperature Pulse Rate 91 90 90 Respiratory Rate 26 H 26 H Blood Pressure Pulse Oximetry 96 Oxygen Delivery Mechanical Ventilation Fraction of Inspired Oxygen 80 03/11/24 02:53 03/11/24 03:00 03/11/24 03:15 Temperature Pulse Rate 90 90 92 Respiratory Rate 26 H 26 H Blood Pressure 79/68 L Pulse Oximetry Oxygen Delivery Fraction of Inspired Oxygen 03/11/24 03:30 03/11/24 03:30 03/11/24 04:00 Temperature 37.2 C Pulse Rate 93 93 93 Respiratory Rate 26 H 26 H Blood Pressure 80/64 L 79/68 L Pulse Oximetry 97 Oxygen Delivery Fraction of Inspired Oxygen 03/11/24 04:00 03/11/24 04:00 03/11/24 04:00 Temperature Pulse Rate 93 92 Respiratory Rate Blood Pressure 79/68 L 79/68 L Pulse Oximetry Oxygen Delivery Fraction of Inspired Oxygen 80 03/11/24 04:00 03/11/24 04:00 03/11/24 04:15 Temperature Pulse Rate 93 93 93 Respiratory Rate 26 H 26 H Blood Pressure Pulse Oximetry 97 Oxygen Delivery Mechanical Ventilation Fraction of Inspired Oxygen 80 03/11/24 04:30 03/11/24 04:45 03/11/24 05:00 Temperature Pulse Rate 93 92 91 Respiratory Rate 26 H Blood Pressure 68/58 L 79/68 L Pulse Oximetry Oxygen Delivery Fraction of Inspired Oxygen 03/11/24 05:00 03/11/24 05:30 03/11/24 05:32 Temperature Pulse Rate 91 93 92 Respiratory Rate 26 H Blood Pressure 79/68 L Pulse Oximetry 100 Oxygen Delivery Mechanical Ventilation Fraction of Inspired Oxygen 80 03/11/24 06:00 03/11/24 06:00 03/11/24 06:00 Temperature Pulse Rate 89 91 91 Respiratory Rate Blood Pressure 78/67 L 78/67 L Pulse Oximetry Oxygen Delivery Fraction of Inspired Oxygen 03/11/24 06:00 03/11/24 06:00 03/11/24 07:58 Temperature Pulse Rate 91 91 90 Respiratory Rate 26 H 26 H 28 H Blood Pressure 78/67 L Pulse Oximetry 100 99 Oxygen Delivery Mechanical Ventilation Fraction of Inspired Oxygen 60 03/11/24 07:58 03/11/24 07:58 03/11/24 08:00 Temperature Pulse Rate 90 90 90 Respiratory Rate 28 H Blood Pressure 75/61 L Pulse Oximetry 99 Oxygen Delivery Mechanical Ventilation Fraction of Inspired Oxygen 60 03/11/24 08:00 03/11/24 08:00 03/11/24 08:00 Temperature Pulse Rate 90 90 90 Respiratory Rate 15 15 Blood Pressure 75/61 L Pulse Oximetry Oxygen Delivery Fraction of Inspired Oxygen 03/11/24 08:00 03/11/24 08:00 03/11/24 08:00 Temperature 37.1 C Pulse Rate 90 Respiratory Rate 26 H Blood Pressure 89/74 L Pulse Oximetry 99 99 Oxygen Delivery Mechanical Ventilation Fraction of Inspired Oxygen 60 60 03/11/24 08:00 03/11/24 08:03 03/11/24 08:07 Temperature Pulse Rate 92 90 93 Respiratory Rate 23 H Blood Pressure 75/61 L Pulse Oximetry Oxygen Delivery Fraction of Inspired Oxygen 03/11/24 08:08 03/11/24 08:10 03/11/24 10:00 Temperature Pulse Rate 90 90 94 Respiratory Rate 15 Blood Pressure 75/61 L 99/82 L Pulse Oximetry Oxygen Delivery Fraction of Inspired Oxygen 03/11/24 10:00 03/11/24 10:00 03/11/24 10:00 Temperature Pulse Rate 94 94 94 Respiratory Rate 21 H 21 H Blood Pressure 99/82 L Pulse Oximetry Oxygen Delivery Fraction of Inspired Oxygen 03/11/24 10:00 03/11/24 11:40 03/11/24 12:00 Temperature 37.4 C Pulse Rate 93 110 H 100 Respiratory Rate 26 H Blood Pressure 89/72 L Pulse Oximetry 97 98 Oxygen Delivery Mechanical Ventilation Fraction of Inspired Oxygen 40 03/11/24 12:00 03/11/24 12:00 03/11/24 12:00 Temperature Pulse Rate 107 H 107 H 107 H Respiratory Rate 19 Blood Pressure 77/68 L 77/68 L Pulse Oximetry Oxygen Delivery Fraction of Inspired Oxygen 03/11/24 12:00 03/11/24 12:00 03/11/24 12:00 Temperature Pulse Rate 107 H Respiratory Rate 19 Blood Pressure Pulse Oximetry 97 Oxygen Delivery Mechanical Ventilation Fraction of Inspired Oxygen 40 40 03/11/24 12:00 03/11/24 13:11 03/11/24 13:48 Temperature Pulse Rate 106 H 99 92 Respiratory Rate 22 H Blood Pressure 104/86 Pulse Oximetry Oxygen Delivery Fraction of Inspired Oxygen 03/11/24 13:49 03/11/24 13:49 03/11/24 13:50 Temperature Pulse Rate 93 93 93 Respiratory Rate 22 H Blood Pressure 91/75 L 91/75 L Pulse Oximetry Oxygen Delivery Fraction of Inspired Oxygen 03/11/24 14:00 03/11/24 14:00 03/11/24 14:00 Temperature Pulse Rate 92 96 96 Respiratory Rate 24 H Blood Pressure 113/88 113/88 Pulse Oximetry 97 Oxygen Delivery Fraction of Inspired Oxygen 03/11/24 14:00 03/11/24 14:00 03/11/24 14:00 Temperature Pulse Rate 96 96 96 Respiratory Rate 23 H 23 H Blood Pressure 113/88 Pulse Oximetry Oxygen Delivery Fraction of Inspired Oxygen 03/11/24 14:05 03/11/24 14:05 03/11/24 14:22 Temperature Pulse Rate 94 94 94 Respiratory Rate 26 H 26 H Blood Pressure Pulse Oximetry 97 Oxygen Delivery Mechanical Ventilation Fraction of Inspired Oxygen 40 03/11/24 14:47 03/11/24 15:33 03/11/24 15:51 Temperature Pulse Rate 97 94 97 Respiratory Rate Blood Pressure 117/92 H 116/92 H 112/87 Pulse Oximetry Oxygen Delivery Fraction of Inspired Oxygen 03/11/24 16:00 03/11/24 16:00 03/11/24 16:00 Temperature Pulse Rate 96 96 96 Respiratory Rate 26 H 26 H Blood Pressure 112/91 H Pulse Oximetry Oxygen Delivery Fraction of Inspired Oxygen 03/11/24 16:00 03/11/24 16:00 03/11/24 16:42 Temperature Pulse Rate 96 124 H Respiratory Rate 26 H Blood Pressure 112/91 H Pulse Oximetry Oxygen Delivery Fraction of Inspired Oxygen 40 03/11/24 16:43 03/11/24 17:00 Temperature Pulse Rate 124 H 121 H Respiratory Rate 26 H Blood Pressure Pulse Oximetry 96 Oxygen Delivery Mechanical Ventilation Fraction of Inspired Oxygen 40 Intake/Output Intake/Output: Intake & Output 03/08/24 03/09/24 03/10/24 03/11/24 23:59 23:59 23:59 23:59 Intake Total 1838.5 1110.7 Output Total 1030 Balance 1838.5 80.7 Meds/Results Medications: Active Medications Generic Name Dose Route Start Last Admin Trade Name Freq PRN Reason Stop Dose Admin Acetaminophen 650 mg 03/10/24 21:32 Acetaminophen 650 Mg Suppository RECTAL Q6H PRN Mild Pain (1-3) or Fever Albuterol/Ipratropium 3 ml 03/11/24 02:00 03/11/24 14:05 Ipratropium 0.5 Mg/Albuterol Sulfate 2.5 Mg Ampul.Neb 3 Ml INHALATION 3 ml Q6HRT DANAE Administration Aspirin 81 mg 03/11/24 08:00 03/11/24 08:24 Aspirin 81 Mg Chewable Tablet PO 81 mg DAILY@0800 DANAE Administration Dextrose 12.5 gm 03/10/24 21:32 Dextrose 50% 25 Gm/50 Ml Syringe IV PUSH PRN PRN Hypoglycemia Protocol Enoxaparin Sodium 40 mg 03/11/24 09:00 03/11/24 08:24 Enoxaparin 40 Mg/0.4 Ml Syringe SUB-Q 40 mg DAILY DANAE Administration Glucagon 1 mg 03/10/24 21:32 Glucagon For Inj 1 Mg Vial IM PRN PRN Hypoglycemia Protocol Glucose 15 gm 03/10/24 21:32 Glucose Oral Gel 15 Gm Of Glucse In 37.5 Gm Tube PO PRN PRN Hypoglycemia Protocol Hydrocortisone Sodium Succinate 50 mg 03/10/24 22:20 03/11/24 11:08 Hydrocortisone Sodium Succinate 100 Mg/2 Ml Vial IV PUSH 50 mg Q6HR DANAE Administration Vancomycin HCl 1,500 mg in 500 mls @ 250 mls/hr 03/11/24 12:00 03/11/24 11:57 Vancomycin 1,500 Mg/Ns 500 Ml IVPB 250 mls/hr Q18H DANAE Administration Vasopressin 100 units/ 100 mls @ 1.2 mls/hr 03/10/24 19:40 03/11/24 16:00 Dextrose IV CONT 0.02 units/min .Q72H DANAE 1.2 mls/hr Infusion 0.02 UNITS/MIN Propofol 100 mls @ 3.174 mls/hr 03/10/24 21:35 Diprivan IV CONT .[id number] DANAE 5 MCG/KG/MIN Dextrose 1,000 mls @ 100 mls/hr 03/10/24 21:32 Dextrose 5% 1,000 Ml IVPB PRN PRN Hypoglycemia Protocol Norepinephrine Bitartrate 8 mg in 250 mls @ 31.875 mls/hr 03/11/24 01:30 03/11/24 16:00 Levophed 8 Mg/D5w 250 Ml IV CONT 17 mcg/min .[id number] DANAE 31.88 mls/hr Titration Protocol 17 MCG/MIN Piperacillin Sod/Tazobactam Sod 4.5 gm in 100 mls @ 200 mls/hr 03/11/24 11:00 03/11/24 10:23 Zosyn 4.5 Gm/Ns 100 Ml IVPB 200 mls/hr Q6HR DANAE Administration Azithromycin 500 mg in 250 mls @ 250 mls/hr 03/11/24 09:00 03/11/24 11:08 Zithromax IVPB 250 mls/hr Q24H DANAE Administration Albumin Human 100 mls @ 60 mls/hr 03/11/24 12:54 03/11/24 13:21 Albutein IVPB 03/12/24 19:39 60 mls/hr Q6HR DANAE Administration Fentanyl Citrate 2,500 mcg in 250 mls @ 12.5 mls/hr 03/11/24 13:35 03/11/24 16:42 Fentanyl 2,500 Mcg/Ns 250 Ml IV CONT 125 mcg/hr .Q20H DANAE 12.5 mls/hr Titration Protocol 125 MCG/HR Midazolam HCl 100 mg in 100 mls @ 3 mls/hr 03/11/24 13:35 03/11/24 16:43 Versed 100 Mg/Ns 100 Ml IV CONT 3 mg/hr .[id number] DANAE 3 mls/hr Titration Protocol 3 MG/HR Insulin Aspart 3 - 6 units 03/11/24 00:00 03/11/24 12:49 Insulin Aspart (*Bkc) 100 Units/Ml SUB-Q 3 units Q6HR DANAE Administration Protocol Multi-Ingred Cream/Lotion/Oil/Oint 1 applic 03/11/24 21:00 Mineral Oil/White Petrolatum Ointment EACH EYE Q12HR DANAE Pantoprazole Sodium 40 mg 03/11/24 09:00 03/11/24 08:24 Pantoprazole Sodium Iv 40 Mg Vial IV PUSH 40 mg QAM DANAE Administration Perflutren Lipid Microsphere 0 ml 03/10/24 21:32 Perflutren Lipid Microspheres 1.5 Ml Vial Diluted To 10 Ml Total Volume IV PUSH 03/13/24 21:32 ONCE PRN adequate visualization Protocol Radiology Results: ITS Impressions Chest CTA 03/10/24 18:29 IMPRESSION: No pulmonary embolus. No aortic dissection. Likely bilateral aspiration pneumonia, as detailed above. Severe panlobular emphysematous disease. Left adrenal enlargement for which follow-up examination may be performed when the patient is clinically able. Chest X-Ray 03/11/24 06:47 IMPRESSION: 1. Stable airspace opacities in the mid and lower lung zones, consistent with pneumonia. 2. Emphysema. Head CT 03/11/24 15:28 IMPRESSION: 1. Infarcts in the left occipital lobe and right parietal lobe not visible on 03/10/2024, likely acute. 2. 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 Labs Labs: Laboratory Results - last 24 hr 03/10/24 03/10/24 03/10/24 16:20 16:21 17:07 WBC RBC Hgb Hct MCV MCH MCHC RDW Plt Count MPV Immature Gran % (Auto) Neut % (Auto) Lymph % (Auto) [place] % (Auto) Eos % (Auto) Baso % (Auto) Lymph # (Auto) [place] # (Auto) Eos # (Auto) Baso # (Auto) Abs Immat Gran (auto) Absolute Neuts (auto) Absolute Nucleated RBC Total Counted Neutrophils % (Manual) Band Neutrophils % Lymphocytes % (Manual) Monocytes % (Manual) Nucleated RBC % Abs Neuts (Manual) Abs Lymphs (Manual) Abs Monocytes (Manual) Platelet Estimate Anisocytosis [place] Cells Schistocytes Puncture Site ABG pH ABG pCO2 ABG pO2 ABG PO2/FiO2 Ratio ABG HCO3 ABG O2 Saturation ABG O2 Content ABG Base Excess A-a Gradient Oxyhemoglobin Carboxyhemoglobin Methemoglobin Reduced Hemoglobin Total Hemoglobin O2 Delivery Device O2 Liters/Min Minute Volume Vent Rate Vent Mode FiO2 Tidal Volume PEEP Peak Inspir Pressure Pressure Support Sodium Potassium Chloride Carbon Dioxide Anion Gap BUN Creatinine Estim Creat Clear Calc Estimated GFR Glucose POC Capillary Glucose Hemoglobin A1c 5.6 Lactic Acid Calcium Phosphorus Magnesium Total Bilirubin AST ALT Alkaline Phosphatase Troponin I < 0.012 Total Protein Albumin Nasal MRSA (PCR) Not detected 03/10/24 03/10/24 03/10/24 18:43 19:08 21:26 WBC RBC Hgb Hct MCV MCH MCHC RDW Plt Count MPV Immature Gran % (Auto) Neut % (Auto) Lymph % (Auto) [place] % (Auto) Eos % (Auto) Baso % (Auto) Lymph # (Auto) [place] # (Auto) Eos # (Auto) Baso # (Auto) Abs Immat Gran (auto) Absolute Neuts (auto) Absolute Nucleated RBC Total Counted Neutrophils % (Manual) Band Neutrophils % Lymphocytes % (Manual) Monocytes % (Manual) Nucleated RBC % Abs Neuts (Manual) Abs Lymphs (Manual) Abs Monocytes (Manual) Platelet Estimate Anisocytosis [place] Cells Schistocytes Puncture Site Right radial Left radial ABG pH 6.899 L* 7.057 L* ABG pCO2 140.6 H* 70.9 H* ABG pO2 76.2 L 106.8 H ABG PO2/FiO2 Ratio 0.76 1.07 ABG HCO3 26.9 H 19.5 L ABG O2 Saturation 81.3 L* 95.2 ABG O2 Content 20.2 19.8 ABG Base Excess -10.6 -12.1 A-a Gradient 496.2 535.3 Oxyhemoglobin 85.3 L* 94.8 Carboxyhemoglobin 2.9 H 1.6 Methemoglobin 0.4 0.2 Reduced Hemoglobin 11.4 H 3.4 Total Hemoglobin 16.8 14.8 O2 Delivery Device Ventilator Ventilator O2 Liters/Min Not Reportable Not Reportable Minute Volume Not Reportable Not Reportable Vent Rate 16 26 Vent Mode Cmv Cmv FiO2 100 100 Tidal Volume 400 500 PEEP 5 5 Peak Inspir Pressure Not Reportable Not Reportable Pressure Support Not Reportable Not Reportable Sodium Potassium Chloride Carbon Dioxide Anion Gap BUN Creatinine Estim Creat Clear Calc Estimated GFR Glucose POC Capillary Glucose 226 H Hemoglobin A1c Lactic Acid Calcium Phosphorus Magnesium Total Bilirubin AST ALT Alkaline Phosphatase Troponin I Total Protein Albumin Nasal MRSA (PCR) 03/10/24 03/10/24 03/10/24 22:37 23:04 23:56 WBC RBC Hgb Hct MCV MCH MCHC RDW Plt Count MPV Immature Gran % (Auto) Neut % (Auto) Lymph % (Auto) [place] % (Auto) Eos % (Auto) Baso % (Auto) Lymph # (Auto) [place] # (Auto) Eos # (Auto) Baso # (Auto) Abs Immat Gran (auto) Absolute Neuts (auto) Absolute Nucleated RBC Total Counted Neutrophils % (Manual) Band Neutrophils % Lymphocytes % (Manual) Monocytes % (Manual) Nucleated RBC % Abs Neuts (Manual) Abs Lymphs (Manual) Abs Monocytes (Manual) Platelet Estimate Anisocytosis [place] Cells Schistocytes Puncture Site ABG pH ABG pCO2 ABG pO2 ABG PO2/FiO2 Ratio ABG HCO3 ABG O2 Saturation ABG O2 Content ABG Base Excess A-a Gradient Oxyhemoglobin Carboxyhemoglobin Methemoglobin Reduced Hemoglobin Total Hemoglobin O2 Delivery Device O2 Liters/Min Minute Volume Vent Rate Vent Mode FiO2 Tidal Volume PEEP Peak Inspir Pressure Pressure Support Sodium Potassium Chloride Carbon Dioxide Anion Gap BUN Creatinine Estim Creat Clear Calc Estimated GFR Glucose POC Capillary Glucose 183 H Hemoglobin A1c Lactic Acid Calcium Phosphorus Magnesium Total Bilirubin AST ALT Alkaline Phosphatase Troponin I 0.159 H* D Total Protein Albumin Nasal MRSA (PCR) Not detected 03/11/24 03/11/24 03/11/24 04:36 05:19 05:23 WBC 28.8 H RBC 4.81 Hgb 14.4 Hct 43.5 MCV 90.4 MCH 29.9 MCHC 33.1 RDW 14.2 Plt Count 316 MPV 9.5 Immature Gran % (Auto) Not Reportable Neut % (Auto) Not Reportable Lymph % (Auto) Not Reportable [place] % (Auto) Not Reportable Eos % (Auto) Not Reportable Baso % (Auto) Not Reportable Lymph # (Auto) Not Reportable [place] # (Auto) Not Reportable Eos # (Auto) Not Reportable Baso # (Auto) Not Reportable Abs Immat Gran (auto) Not Reportable Absolute Neuts (auto) Not Reportable Absolute Nucleated RBC Not Reportable Total Counted 100 Neutrophils % (Manual) 85 H Band Neutrophils % 1 Lymphocytes % (Manual) 9.0 L Monocytes % (Manual) 5 Nucleated RBC % Not Reportable Abs Neuts (Manual) 24.76 H Abs Lymphs (Manual) 2.59 Abs Monocytes (Manual) 1.44 H Platelet Estimate Adequate Anisocytosis 1+ [place] Cells 1+ Schistocytes None seen Puncture Site Left radial ABG pH 7.208 L* ABG pCO2 55.1 H ABG pO2 138.0 H ABG PO2/FiO2 Ratio 1.73 ABG HCO3 21.4 L ABG O2 Saturation 98.2 ABG O2 Content 20.0 ABG Base Excess -7.0 A-a Gradient 374.6 Oxyhemoglobin 98.2 Carboxyhemoglobin 0.3 Methemoglobin 0.2 Reduced Hemoglobin 1.3 Total Hemoglobin 14.3 O2 Delivery Device Ventilator O2 Liters/Min Not Reportable Minute Volume Not Reportable Vent Rate 26 Vent Mode Cmv FiO2 80 Tidal Volume 500 PEEP 5 Peak Inspir Pressure Not Reportable Pressure Support Not Reportable Sodium 138 Potassium 5.0 Chloride 107 Carbon Dioxide 24 Anion Gap 7 BUN 11 Creatinine 1.10 Estim Creat Clear Calc 75 Estimated GFR > 60 Glucose 181 H POC Capillary Glucose 206 H Hemoglobin A1c Lactic Acid Calcium 7.8 L Phosphorus 4.4 Magnesium 1.8 Total Bilirubin 0.4 AST 33 ALT 35 Alkaline Phosphatase 76 Troponin I 0.164 H* Total Protein 7.0 Albumin 3.8 Nasal MRSA (PCR) 03/11/24 03/11/24 12:06 12:14 WBC RBC Hgb Hct MCV MCH MCHC RDW Plt Count MPV Immature Gran % (Auto) Neut % (Auto) Lymph % (Auto) [place] % (Auto) Eos % (Auto) Baso % (Auto) Lymph # (Auto) [place] # (Auto) Eos # (Auto) Baso # (Auto) Abs Immat Gran (auto) Absolute Neuts (auto) Absolute Nucleated RBC Total Counted Neutrophils % (Manual) Band Neutrophils % Lymphocytes % (Manual) Monocytes % (Manual) Nucleated RBC % Abs Neuts (Manual) Abs Lymphs (Manual) Abs Monocytes (Manual) Platelet Estimate Anisocytosis [place] Cells Schistocytes Puncture Site ABG pH ABG pCO2 ABG pO2 ABG PO2/FiO2 Ratio ABG HCO3 ABG O2 Saturation ABG O2 Content ABG Base Excess A-a Gradient Oxyhemoglobin Carboxyhemoglobin Methemoglobin Reduced Hemoglobin Total Hemoglobin O2 Delivery Device O2 Liters/Min Minute Volume Vent Rate Vent Mode FiO2 Tidal Volume PEEP Peak Inspir Pressure Pressure Support Sodium Potassium Chloride Carbon Dioxide Anion Gap BUN Creatinine Estim Creat Clear Calc Estimated GFR Glucose POC Capillary Glucose 237 H Hemoglobin A1c Lactic Acid 4.1 H* Calcium Phosphorus Magnesium Total Bilirubin AST ALT Alkaline Phosphatase Troponin I Total Protein Albumin Nasal MRSA (PCR)
[2024-03-11 18:23] LABS: Glucose Point of Care 137 mg/dl (65-105)
--- NOTE | 2024-03-11 18:47 | P.TS_ITS ---
Transfer Discharge Sum: Prov Provider Date of admission: 03/10/24 19:58 Primary care physician: Rakesh Giron, [employer]PERINTENDENT [employer]ASUREMENT Admitting clinician: Norma Hong MD Consults: 03/10/24 20:02 Consult to Physician Routine Comment: Consulting Provider: Summer Pritchett Reason for consultation: respiratory failure 2/2 aspiration pneumonia Has provider been notified: Yes 03/11/24 07:28 Consult to Physician Routine Comment: Consulting Provider: Raymond Corey scallop dredger/MD group to consult: cardiology Reason for consultation: elevated trops, septic shock Has provider been notified: Yes DS: Admitting Diagnosis Discharge Date 03/11/2024 Admitting Diagnosis acute respiratory failure DS: Discharge Diagnosis Discharge Diagnosis (1) Ischemic stroke: Code(s): I63.9 - Cerebral infarction, unspecified Status: Acute Transfer Discharge Sum: Med Medications Active and Home Medications: Home Medications albuterol sulfate 90 mcg/actuation breath activated powder inhaler,sensor (Proair Digihaler) 1 inh inhalation Q4-6H PRN shortness of breath or wheezing 03/09/20 [History Confirmed 03/11/24] cyclobenzaprine 10 mg tablet 10 mg PO TID 03/09/20 [History Confirmed 03/11/24] gabapentin 300 mg capsule 300 mg PO TID 03/09/20 [History Confirmed 03/11/24] lisinopril 40 mg tablet 40 mg PO DAILY 03/09/20 [History Confirmed 03/11/24] trazodone 50 mg tablet 50 mg PO HS PRN sleep 03/09/20 [History Confirmed 03/11/24] diclofenac sodium 75 mg tablet,delayed release 75 mg PO Q12H 03/11/24 [History Confirmed 03/11/24] famotidine 40 mg tablet 40 mg PO DAILY 03/11/24 [History Confirmed 03/11/24] metoprolol tartrate 25 mg tablet 25 mg PO Q12H 03/11/24 [History Confirmed 03/11/24] Active Medications Acetaminophen (Acetaminophen 650 Mg Suppository) 650 mg RECTAL Q6H PRN PRN Reason: Mild Pain (1-3) or Fever Albuterol/Ipratropium (Ipratropium 0.5 Mg/Albuterol Sulfate 2.5 Mg Ampul.Neb 3 Ml) 3 ml INHALATION Q6HRT [facility] Last Admin: 03/11/24 14:05 Dose: 3 ml Aspirin (Aspirin 81 Mg Chewable Tablet) 81 mg PO DAILY@0800 [facility] Last Admin: 03/11/24 08:24 Dose: 81 mg Dextrose (Dextrose 50% 25 Gm/50 Ml Syringe) 12.5 gm IV PUSH PRN PRN; Protocol PRN Reason: Hypoglycemia Enoxaparin Sodium (Enoxaparin 40 Mg/0.4 Ml Syringe) 40 mg SUB-Q DAILY [facility] Last Admin: 03/11/24 08:24 Dose: 40 mg Glucagon (Glucagon For Inj 1 Mg Vial) 1 mg IM PRN PRN; Protocol PRN Reason: Hypoglycemia Glucose (Glucose Oral Gel 15 Gm Of Glucse In 37.5 Gm Tube) 15 gm PO PRN PRN; Protocol PRN Reason: Hypoglycemia Hydrocortisone Sodium Succinate (Hydrocortisone Sodium Succinate 100 Mg/2 Ml Vial) 50 mg IV PUSH Q6HR [facility] Last Admin: 03/11/24 18:03 Dose: 50 mg Vancomycin HCl (Vancomycin 1,500 Mg/Ns 500 Ml) 1,500 mg in 500 mls @ 250 mls/hr IVPB Q18H [facility] Last Admin: 03/11/24 11:57 Dose: 250 mls/hr Vasopressin 100 units/ (Dextrose) 100 mls @ 1.2 mls/hr IV CONT .Q72H [facility] Last Infusion: 03/11/24 18:00 Dose: 0.02 units/min, 1.2 mls/hr Propofol (Diprivan) 100 mls @ 3.174 mls/hr IV CONT .[id number] [facility] Dextrose (Dextrose 5% 1,000 Ml) 1,000 mls @ 100 mls/hr IVPB PRN PRN; Protocol PRN Reason: Hypoglycemia Norepinephrine Bitartrate (Levophed 8 Mg/D5w 250 Ml) 8 mg in 250 mls @ 30 mls/hr IV CONT .Q8H20M [facility]; Protocol Last Titration: 03/11/24 18:36 Dose: 16 mcg/min, 30 mls/hr Piperacillin Sod/Tazobactam Sod (Zosyn 4.5 Gm/Ns 100 Ml) 4.5 gm in 100 mls @ 200 mls/hr IVPB Q6HR [facility] Last Admin: 03/11/24 18:05 Dose: 200 mls/hr Azithromycin (Zithromax) 500 mg in 250 mls @ 250 mls/hr IVPB Q24H [facility] Last Admin: 03/11/24 11:08 Dose: 250 mls/hr Albumin Human (Albutein) 100 mls @ 60 mls/hr IVPB Q6HR [facility] Stop: 03/12/24 19:39 Last Admin: 03/11/24 18:05 Dose: 60 mls/hr Fentanyl Citrate (Fentanyl 2,500 Mcg/Ns 250 Ml) 2,500 mcg in 250 mls @ 15 mls/hr IV CONT .[id number] [facility]; Protocol Last Titration: 03/11/24 18:00 Dose: 150 mcg/hr, 15 mls/hr Midazolam HCl (Versed 100 Mg/Ns 100 Ml) 100 mg in 100 mls @ 5 mls/hr IV CONT .Q20H [facility]; Protocol Last Titration: 03/11/24 18:00 Dose: 5 mg/hr, 5 mls/hr Insulin Aspart (Insulin Aspart (*Bkc) 100 Units/Ml) 3 - 6 units SUB-Q Q6HR [facility]; Protocol Last Admin: 03/11/24 18:15 Dose: Not Given Multi-Ingred Cream/Lotion/Oil/Oint (Mineral Oil/White Petrolatum Ointment) 1 applic EACH EYE Q12HR [facility] Pantoprazole Sodium (Pantoprazole Sodium Iv 40 Mg Vial) 40 mg IV PUSH QAM [facility] Last Admin: 03/11/24 08:24 Dose: 40 mg Perflutren Lipid Microsphere (Perflutren Lipid Microspheres 1.5 Ml Vial Diluted To 10 Ml Total Volume) 0 ml IV PUSH ONCE PRN; Protocol PRN Reason: adequate visualization Stop: 03/13/24 21:32 Transfer Discharge Sum: Hosp Hospital Course Hospital course: Darron Evans is a 63 year old male was admitted in ICU bed 3 for acute respiratory failure and possible aspiration pneumonia. Workup also showed the patient ischemic stroke. [facility] was contacted and ICU doctor was consulted. They accepted the patient, accepting doctor was Dr Mcdaniel. Patient was transferred in stable condition. Time Spent with Patient Time attestation: Total time spent providing and/or coordinating transfer services: More then 30 minutes DS: Data Data Completed and Pending Labs on day of discharge: Labs from last 24 hours 03/11/24 03/11/2424 18:14 12:14 12:06 WBC RBC Hgb Hct MCV MCH MCHC RDW Plt Count MPV Immature Gran % (Auto) Neut % (Auto) Lymph % (Auto) Moore % (Auto) Eos % (Auto) Baso % (Auto) Lymph # (Auto) Moore # (Auto) Eos # (Auto) Baso # (Auto) Abs Immat Gran (auto) Absolute Neuts (auto) Absolute Nucleated RBC Total Counted Neutrophils % (Manual) Band Neutrophils % Lymphocytes % (Manual) Monocytes % (Manual) Nucleated RBC % Abs Neuts (Manual) Abs Lymphs (Manual) Abs Monocytes (Manual) Platelet Estimate Anisocytosis Ying Cells Schistocytes Puncture Site ABG pH ABG pCO2 ABG pO2 ABG PO2/FiO2 Ratio ABG HCO3 ABG O2 Saturation ABG O2 Content ABG Base Excess A-a Gradient Oxyhemoglobin Carboxyhemoglobin Methemoglobin Reduced Hemoglobin Total Hemoglobin O2 Delivery Device O2 Liters/Min Minute Volume Vent Rate Vent Mode FiO2 Tidal Volume PEEP Peak Inspir Pressure Pressure Support Sodium Potassium Chloride Carbon Dioxide Anion Gap BUN Creatinine Estim Creat Clear Calc Estimated GFR Glucose POC Capillary Glucose 137 H 237 H Hemoglobin A1c Lactic Acid 4.1 H* Calcium Phosphorus Magnesium Total Bilirubin AST ALT Alkaline Phosphatase Troponin I Total Protein Albumin Nasal MRSA (PCR) Ur L.pneumophila Ag Mycoplasma pneumon IgM Urine Pneumococcal Ag TB Test (QFT) Gold Plus TB Test (QFT) Nil TB Test Mitogen - Nil TB Test Ag - Nil 1 TB Test Ag - Nil 2 03/11/24 03/11/24 03/11/24 05:23 05:19 04:36 WBC 28.8 H RBC 4.81 Hgb 14.4 Hct 43.5 MCV 90.4 MCH 29.9 MCHC 33.1 RDW 14.2 Plt Count 316 MPV 9.5 Immature Gran % (Auto) Not Reportable Neut % (Auto) Not Reportable Lymph % (Auto) Not Reportable Moore % (Auto) Not Reportable Eos % (Auto) Not Reportable Baso % (Auto) Not Reportable Lymph # (Auto) Not Reportable Moore # (Auto) Not Reportable Eos # (Auto) Not Reportable Baso # (Auto) Not Reportable Abs Immat Gran (auto) Not Reportable Absolute Neuts (auto) Not Reportable Absolute Nucleated RBC Not Reportable Total Counted 100 Neutrophils % (Manual) 85 H Band Neutrophils % 1 Lymphocytes % (Manual) 9.0 L Monocytes % (Manual) 5 Nucleated RBC % Not Reportable Abs Neuts (Manual) 24.76 H Abs Lymphs (Manual) 2.59 Abs Monocytes (Manual) 1.44 H Platelet Estimate Adequate Anisocytosis 1+ Rittman Cells 1+ Schistocytes None seen Puncture Site Left radial ABG pH 7.208 L* ABG pCO2 55.1 H ABG pO2 138.0 H ABG PO2/FiO2 Ratio 1.73 ABG HCO3 21.4 L ABG O2 Saturation 98.2 ABG O2 Content 20.0 ABG Base Excess -7.0 A-a Gradient 374.6 Oxyhemoglobin 98.2 Carboxyhemoglobin 0.3 Methemoglobin 0.2 Reduced Hemoglobin 1.3 Total Hemoglobin 14.3 O2 Delivery Device Ventilator O2 Liters/Min Not Reportable Minute Volume Not Reportable Vent Rate 26 Vent Mode Cmv FiO2 80 Tidal Volume 500 PEEP 5 Peak Inspir Pressure Not Reportable Pressure Support Not Reportable Sodium 138 Potassium 5.0 Chloride 107 Carbon Dioxide 24 Anion Gap 7 BUN 11 Creatinine 1.10 Estim Creat Clear Calc 75 Estimated GFR > 60 Glucose 181 H POC Capillary Glucose 206 H Hemoglobin A1c Lactic Acid Calcium 7.8 L Phosphorus 4.4 Magnesium 1.8 Total Bilirubin 0.4 AST 33 ALT 35 Alkaline Phosphatase 76 Troponin I 0.164 H* Total Protein 7.0 Albumin 3.8 Nasal MRSA (PCR) Ur L.pneumophila Ag Mycoplasma pneumon IgM Urine Pneumococcal Ag TB Test (QFT) Gold Plus TB Test (QFT) Nil TB Test Mitogen - Nil TB Test Ag - Nil 1 TB Test Ag - Nil 2 03/10/24 03/10/24 03/10/24 23:56 23:04 22:37 WBC RBC Hgb Hct MCV MCH MCHC RDW Plt Count MPV Immature Gran % (Auto) Neut % (Auto) Lymph % (Auto) Moore % (Auto) Eos % (Auto) Baso % (Auto) Lymph # (Auto) Moore # (Auto) Eos # (Auto) Baso # (Auto) Abs Immat Gran (auto) Absolute Neuts (auto) Absolute Nucleated RBC Total Counted Neutrophils % (Manual) Band Neutrophils % Lymphocytes % (Manual) Monocytes % (Manual) Nucleated RBC % Abs Neuts (Manual) Abs Lymphs (Manual) Abs Monocytes (Manual) Platelet Estimate Anisocytosis Ying Cells Schistocytes Puncture Site ABG pH ABG pCO2 ABG pO2 ABG PO2/FiO2 Ratio ABG HCO3 ABG O2 Saturation ABG O2 Content ABG Base Excess A-a Gradient Oxyhemoglobin Carboxyhemoglobin Methemoglobin Reduced Hemoglobin Total Hemoglobin O2 Delivery Device O2 Liters/Min Minute Volume Vent Rate Vent Mode FiO2 Tidal Volume PEEP Peak Inspir Pressure Pressure Support Sodium Potassium Chloride Carbon Dioxide Anion Gap BUN Creatinine Estim Creat Clear Calc Estimated GFR Glucose POC Capillary Glucose 183 H Hemoglobin A1c Lactic Acid Calcium Phosphorus Magnesium Total Bilirubin AST ALT Alkaline Phosphatase Troponin I 0.159 H* D Total Protein Albumin Nasal MRSA (PCR) Not detected Ur L.pneumophila Ag Pending Mycoplasma pneumon IgM Pending Urine Pneumococcal Ag Pending TB Test (QFT) Gold Plus TB Test (QFT) Nil TB Test Mitogen - Nil TB Test Ag - Nil 1 TB Test Ag - Nil 2 03/10/24 03/10/24 03/10/24 21:26 19:08 18:47 WBC RBC Hgb Hct MCV MCH MCHC RDW Plt Count MPV Immature Gran % (Auto) Neut % (Auto) Lymph % (Auto) Moore % (Auto) Eos % (Auto) Baso % (Auto) Lymph # (Auto) Moore # (Auto) Eos # (Auto) Baso # (Auto) Abs Immat Gran (auto) Absolute Neuts (auto) Absolute Nucleated RBC Total Counted Neutrophils % (Manual) Band Neutrophils % Lymphocytes % (Manual) Monocytes % (Manual) Nucleated RBC % Abs Neuts (Manual) Abs Lymphs (Manual) Abs Monocytes (Manual) Platelet Estimate Anisocytosis Ying Cells Schistocytes Puncture Site Left radial Right radial ABG pH 7.057 L* 6.899 L* ABG pCO2 70.9 H* 140.6 H* ABG pO2 106.8 H 76.2 L ABG PO2/FiO2 Ratio 1.07 0.76 ABG HCO3 19.5 L 26.9 H ABG O2 Saturation 95.2 81.3 L* ABG O2 Content 19.8 20.2 ABG Base Excess -12.1 -10.6 A-a Gradient 535.3 496.2 Oxyhemoglobin 94.8 85.3 L* Carboxyhemoglobin 1.6 2.9 H Methemoglobin 0.2 0.4 Reduced Hemoglobin 3.4 11.4 H Total Hemoglobin 14.8 16.8 O2 Delivery Device Ventilator Ventilator O2 Liters/Min Not Reportable Not Reportable Minute Volume Not Reportable Not Reportable Vent Rate 26 16 Vent Mode Cmv Cmv FiO2 100 100 Tidal Volume 500 400 PEEP 5 5 Peak Inspir Pressure Not Reportable Not Reportable Pressure Support Not Reportable Not Reportable Sodium Potassium Chloride Carbon Dioxide Anion Gap BUN Creatinine Estim Creat Clear Calc Estimated GFR Glucose POC Capillary Glucose Hemoglobin A1c Lactic Acid Calcium Phosphorus Magnesium Total Bilirubin AST ALT Alkaline Phosphatase Troponin I Total Protein Albumin Nasal MRSA (PCR) Ur L.pneumophila Ag Mycoplasma pneumon IgM Urine Pneumococcal Ag TB Test (QFT) Gold Plus Pending TB Test (QFT) Nil Pending TB Test Mitogen - Nil Pending TB Test Ag - Nil 1 Pending TB Test Ag - Nil 2 Pending 03/10/24 03/10/24 03/10/24 18:43 16:21 16:20 WBC RBC Hgb Hct MCV MCH MCHC RDW Plt Count MPV Immature Gran % (Auto) Neut % (Auto) Lymph % (Auto) Moore % (Auto) Eos % (Auto) Baso % (Auto) Lymph # (Auto) Moore # (Auto) Eos # (Auto) Baso # (Auto) Abs Immat Gran (auto) Absolute Neuts (auto) Absolute Nucleated RBC Total Counted Neutrophils % (Manual) Band Neutrophils % Lymphocytes % (Manual) Monocytes % (Manual) Nucleated RBC % Abs Neuts (Manual) Abs Lymphs (Manual) Abs Monocytes (Manual) Platelet Estimate Anisocytosis Rittman Cells Schistocytes Puncture Site ABG pH ABG pCO2 ABG pO2 ABG PO2/FiO2 Ratio ABG HCO3 ABG O2 Saturation ABG O2 Content ABG Base Excess A-a Gradient Oxyhemoglobin Carboxyhemoglobin Methemoglobin Reduced Hemoglobin Total Hemoglobin O2 Delivery Device O2 Liters/Min Minute Volume Vent Rate Vent Mode FiO2 Tidal Volume PEEP Peak Inspir Pressure Pressure Support Sodium Potassium Chloride Carbon Dioxide Anion Gap BUN Creatinine Estim Creat Clear Calc Estimated GFR Glucose POC Capillary Glucose 226 H Hemoglobin A1c 5.6 Lactic Acid Calcium Phosphorus Magnesium Total Bilirubin AST ALT Alkaline Phosphatase Troponin I < 0.012 Total Protein Albumin Nasal MRSA (PCR) Ur L.pneumophila Ag Mycoplasma pneumon IgM Urine Pneumococcal Ag TB Test (QFT) Gold Plus TB Test (QFT) Nil TB Test Mitogen - Nil TB Test Ag - Nil 1 TB Test Ag - Nil 2 Preliminary micro results at discharge 03/10/24 17:07 Blood Culture - Preliminary Blood 03/10/24 17:08 Blood Culture - Preliminary Blood
[2024-03-11] MEDS: MINERAL OIL/WHITE PETROLATUM OINTMENT 1 APPLIC EACH EYE (20:09)
[2024-03-11] MEDS: NOREPINEPHRINE 8 MG/D5W 250 ML 8 MG/250 ML BAG 28.13 MG IV CONT (21:12)
[2024-03-11 22:28] LABS: Lactic Acid 1.3 mmol/L (0.7-2.0)
[2024-03-11 23:51] LABS: Glucose Point of Care 141 mg/dl (65-105)
[2024-03-12] VITALS (30 sets, daily range): BP systolic 81–100; BP diastolic 68–83; PULSE 95–114; RESP 20–27; TEMP 36.7–36.8; O2SAT 94–97
[2024-03-12] MEDS: IPRATROPIUM 0.5 MG/ALBUTEROL SULFATE 2.5 MG AMPUL.NEB 3 ML INHALATION (02:46)
[2024-03-13 11:13] LABS: NIL 0.01 IU/mL; Quantiferon TB Plus, 1T NEGATIVE (NEGATIVE)
[2024-03-13 16:25] LABS: Mycoplasma IgM Antibody Titer 244 U/mL
[2024-03-13 19:18] LABS: Pneumococcal Antigen Urine NOT DETECTED
[2024-03-14 21:58] LABS: Legionella pneumophila Ag Ur NOT DETECTED
[2024-03-20 21:33] LABS: Legionella pneumophila Ag Ur NOT DETECTED
== END 2024-03-12 04:00 | disposition short-term general hospital (02) | DRG 720 ==
LOC: ANHED 20:17 → ANHICU 22:43
PROVIDERS: Internal Medicine; Physician Assistant; Student in an Organized Health Care Education/Training Program; Admitting Provider Internal Medicine; Emergency Provider Emergency Medicine; PCP Nurse Practitioner Family; Visit Provider Internal Medicine
DX: A41.9 Sepsis, unspecified organism (principal); R65.21 Severe sepsis with septic shock; J69.0 Pneumonitis due to inhalation of food and vomit; J96.01 Acute respiratory failure with hypoxia; J96.12 Chronic respiratory failure with hypercapnia; I63.9 Cerebral infarction, unspecified; J18.9 Pneumonia, unspecified organism; F17.210 Nicotine dependence, cigarettes, uncomplicated; I10 Essential (primary) hypertension; I95.9 Hypotension, unspecified; I35.0 Nonrheumatic aortic (valve) stenosis; J43.1 Panlobular emphysema; J44.0 Chronic obstructive pulmonary disease with (acute) lower respiratory infection; K21.9 Gastro-esophageal reflux disease without esophagitis; R79.89 Other specified abnormal findings of blood chemistry; R01.1 Cardiac murmur, unspecified; Z59.00 Homelessness unspecified; Z95.5 Presence of coronary angioplasty implant and graft; Z20.822 Contact with and (suspected) exposure to COVID-19
CPT/HCPCS: 36415; 36600; 70450; 70498; 71045; 71275; 80053; 82375; 82805; 82948; 83036; 83050; 83605; 83735; 84100; 84484; 85018; 85025; 86480; 86738; 87040; 87070; 87181; 87205; 87449; 87637; 87641; 87899; 93005; 93306; 94002; 94640; 96361; 96365; 96366; 96375; 99285; A9270; C1751; J0456; J0692; J1650; J1720; J1815; J1836; J2250; J2470; J2543; J3010; J3370; J7030; P9047; Q9967